=== PATIENT | male | born 1960 | race Caucasian/White ===

== ENCOUNTER → 2016-11-17 | Outpatient (CLI) | payer SELFPAY | LOC: M HL 10:22 | PROVIDERS: ATTEND Nurse Practitioner Family | DX: E11.65 Type 2 diabetes mellitus with hyperglycemia (principal) ==

== ENCOUNTER → 2016-11-29 | Outpatient (REF) | payer SELFPAY ==
[2016-11-29 12:21] LABS: ALBUMIN 3.8 GM/DL (3.2-5.2); ALBUMIN/GLOBULIN RATIO 1.31 (1.00-1.93); ALKALINE PHOSPHATASE 85 U/L (45-117); ALT/SGPT 18 U/L (12-78); ANION GAP 12 MEQ/L (8-16); AST/SGOT 17 U/L (15-37); BILIRUBIN,TOTAL 0.6 MG/DL (0.2-1.0); BLOOD UREA NITROGEN 14 MG/DL (7-18); CARBON DIOXIDE LEVEL 26 MEQ/L (21-32); CHLORIDE LEVEL 102 MEQ/L (98-107); CHOLESTEROL LEVEL 90 MG/DL (<200); CREATININE FOR GFR 0.65 MG/DL (0.70-1.30); GLOMERULAR FILTRATION RATE > 60.0 (>56); GLUCOSE, FASTING 110 MG/DL (70-105); POTASSIUM SERUM 4.7 MEQ/L (3.5-5.1); SODIUM LEVEL 140 MEQ/L (136-145); TOTAL PROTEIN 6.7 GM/DL (6.4-8.2); TRIGLYCERIDES LEVEL 54 MG/DL (<150)
== END ==
LOC: M SFHCPLAZ 11:31
PROVIDERS: ATTEND Nurse Practitioner Family
DX: E11.65 Type 2 diabetes mellitus with hyperglycemia (principal)

== ENCOUNTER → 2017-05-31 | Outpatient (REF) | payer OTHER, SELFPAY ==
[2017-05-31 12:40] LABS: MEAN CORPUSCULAR HEMOGLOBIN 32.2 pg (27.0-33.0); MEAN CORPUSCULAR HGB CONC 34.1 g/dl (32.0-36.5); MEAN CORPUSCULAR VOLUME 94.4 fl (80.0-96.0); RED CELL DISTRIBUTION WIDTH 12.7 % (11.5-14.5); WHITE BLOOD COUNT 10.5 K/mm3 (4.0-10.0)
[2017-05-31 12:54] LABS: VITAMIN B12 LEVEL 556 PG/ML
[2017-05-31 12:55] LABS: ALBUMIN 3.8 GM/DL (3.2-5.2); ALBUMIN/GLOBULIN RATIO 1.19 (1.00-1.93); ALKALINE PHOSPHATASE 98 U/L (45-117); ALT/SGPT 33 U/L (12-78); ANION GAP 11 MEQ/L (8-16); AST/SGOT 15 U/L (15-37); BILIRUBIN,TOTAL 0.5 MG/DL (0.2-1.0); BLOOD UREA NITROGEN 15 MG/DL (7-18); CALCIUM LEVEL 9.2 MG/DL (8.5-10.1); CARBON DIOXIDE LEVEL 26 MEQ/L (21-32); CHLORIDE LEVEL 99 MEQ/L (98-107); CHOLESTEROL LEVEL 102 MG/DL (<200); CREATININE FOR GFR 0.73 MG/DL (0.70-1.30); FOLATE 14.1 NG/ML; GLOMERULAR FILTRATION RATE > 60.0 (>56); GLUCOSE, FASTING 182 MG/DL (70-105); POTASSIUM SERUM 4.4 MEQ/L (3.5-5.1); SODIUM LEVEL 136 MEQ/L (136-145); TRIGLYCERIDES LEVEL 72 MG/DL (<150)
== END ==
LOC: M SFHCPLAZ 08:26
PROVIDERS: ATTEND Nurse Practitioner Family
DX: E53.8 Deficiency of other specified B group vitamins (principal); E11.65 Type 2 diabetes mellitus with hyperglycemia

== ENCOUNTER → 2017-07-13 | Outpatient (REF) | payer SELFPAY ==
[2017-07-13 10:32] LABS: MEAN CORPUSCULAR HEMOGLOBIN 32.3 pg (27.0-33.0); MEAN CORPUSCULAR HGB CONC 34.7 g/dl (32.0-36.5); MEAN CORPUSCULAR VOLUME 92.9 fl (80.0-96.0); RED CELL DISTRIBUTION WIDTH 12.2 % (11.5-14.5); RETIC HEMOGLOBIN CONTENT CHr 33.8 PG (24-36); WHITE BLOOD COUNT 7.9 K/mm3 (4.0-10.0)
[2017-07-13 11:00] LABS: PERCENT SATURATION 37.9 % (19.7-50.0)
== END ==
LOC: M SFHCPLAZ 10:08
PROVIDERS: ATTEND Nurse Practitioner Family
DX: D64.9 Anemia, unspecified (principal); R80.9 Proteinuria, unspecified

== ENCOUNTER → 2017-09-20 | Outpatient (CLI) | payer SELFPAY ==
[2017-09-20 10:35] LABS: ALBUMIN 3.7 GM/DL (3.2-5.2); ALBUMIN/GLOBULIN RATIO 1.28 (1.00-1.93); ALKALINE PHOSPHATASE 118 U/L (45-117); ALT/SGPT 22 U/L (12-78); ANION GAP 8 MEQ/L (8-16); AST/SGOT 8 U/L (7-37); BILIRUBIN,TOTAL 0.4 MG/DL (0.2-1.0); BLOOD UREA NITROGEN 11 MG/DL (7-18); CALCIUM LEVEL 8.6 MG/DL (8.5-10.1); CARBON DIOXIDE LEVEL 30 MEQ/L (21-32); CHLORIDE LEVEL 95 MEQ/L (98-107); CREATININE FOR GFR 0.73 MG/DL (0.70-1.30); GLOMERULAR FILTRATION RATE > 60.0 (>56); GLUCOSE, FASTING 355 MG/DL (70-105); POTASSIUM SERUM 4.1 MEQ/L (3.5-5.1); SODIUM LEVEL 133 MEQ/L (136-145); TOTAL PROTEIN 6.6 GM/DL (6.4-8.2)
== END ==
LOC: M LABDRAW1 07:35
PROVIDERS: ATTEND Nurse Practitioner Family
DX: E11.65 Type 2 diabetes mellitus with hyperglycemia (principal); R80.9 Proteinuria, unspecified

== ENCOUNTER → 2017-12-21 | Outpatient (REF) | payer SELFPAY ==
[2017-12-21 12:15] LABS: ALBUMIN 3.9 GM/DL (3.2-5.2); ALBUMIN/GLOBULIN RATIO 1.26 (1.00-1.93); ALKALINE PHOSPHATASE 108 U/L (45-117); ALT/SGPT 24 U/L (12-78); ANION GAP 8 MEQ/L (8-16); AST/SGOT 13 U/L (7-37); BILIRUBIN,TOTAL 0.4 MG/DL (0.2-1.0); BLOOD UREA NITROGEN 18 MG/DL (7-18); CALCIUM LEVEL 8.8 MG/DL (8.5-10.1); CARBON DIOXIDE LEVEL 30 MEQ/L (21-32); CHLORIDE LEVEL 97 MEQ/L (98-107); CREATININE FOR GFR 0.81 MG/DL (0.70-1.30); GLOMERULAR FILTRATION RATE > 60.0 (>56); GLUCOSE, FASTING 237 MG/DL (70-100); POTASSIUM SERUM 4.5 MEQ/L (3.5-5.1); SODIUM LEVEL 135 MEQ/L (136-145)
[2017-12-21 13:54] LABS: CREATININE, URINE 89.9 MG/DL; MALB URINE SIEMENS 25.8 MG/L; MAU/CREAT RATIO 28.6 MCG/MG (0.0-30.0)
[2017-12-21 14:56] LABS: ESTIMATED AVERAGE GLUCOSE 280 MG/DL (60-110); HEMOGLOBIN A1c 11.4 %
== END ==
LOC: M LABDRAW1 11:26
DX: E11.65 Type 2 diabetes mellitus with hyperglycemia (principal); E11.29 Type 2 diabetes mellitus with other diabetic kidney complication

== ENCOUNTER → 2018-02-15 | Outpatient (REF) | payer SELFPAY ==
[2018-02-15 12:41] LABS: ALBUMIN 3.8 GM/DL (3.2-5.2); ALBUMIN/GLOBULIN RATIO 1.27 (1.00-1.93); ALKALINE PHOSPHATASE 86 U/L (45-117); ALT/SGPT 23 U/L (12-78); ANION GAP 8 MEQ/L (8-16); AST/SGOT 16 U/L (7-37); BILIRUBIN,TOTAL 0.4 MG/DL (0.2-1.0); BLOOD UREA NITROGEN 14 MG/DL (7-18); CARBON DIOXIDE LEVEL 28 MEQ/L (21-32); CHLORIDE LEVEL 106 MEQ/L (98-107); CREATININE FOR GFR 0.65 MG/DL (0.70-1.30); GLOMERULAR FILTRATION RATE > 60.0 (>56); GLUCOSE, FASTING 55 MG/DL (70-100); POTASSIUM SERUM 3.9 MEQ/L (3.5-5.1); SODIUM LEVEL 142 MEQ/L (136-145); TOTAL PROTEIN 6.8 GM/DL (6.4-8.2)
[2018-02-15 13:10] LABS: MALB URINE SIEMENS 22.7 MG/L; MAU/CREAT RATIO 22.9 MCG/MG (0.0-30.0)
[2018-02-15 15:12] LABS: ESTIMATED AVERAGE GLUCOSE 220 MG/DL (60-110); HEMOGLOBIN A1c 9.3 %
[2018-02-17 08:10] LABS: FOLATE > 24.0 NG/ML; VITAMIN B12 LEVEL 215 PG/ML
== END ==
LOC: M LABDRAW1 11:20
DX: E11.65 Type 2 diabetes mellitus with hyperglycemia (principal); R80.9 Proteinuria, unspecified; E53.8 Deficiency of other specified B group vitamins
CPT/HCPCS: 82746

== ENCOUNTER → 2018-03-01 | Outpatient (CLI) | payer SELFPAY ==
[2018-03-01 09:11] LABS: BASO # 0.1 10^3/uL (0.0-0.2); BASO % 0.4 % (0.0-1.0); EOS # 0.3 10^3/uL (0.0-0.50); EOS % 2.3 % (0.0-3.0); HEMATOCRIT 37.9 % (42.0-52.0); IMMATURE GRANULOCYTE % 0.6 % (0-3.0); LYMPH # 1.9 10^3/uL (1.5-4.5); LYMPH % 13.9 % (24.0-44.0); MEAN CORPUSCULAR HEMOGLOBIN 31.3 pg (27.0-33.0); MEAN CORPUSCULAR HGB CONC 34.3 g/dl (32.0-36.5); MEAN CORPUSCULAR VOLUME 91.3 fl (80.0-96.0); MONO # 0.6 10^3/uL (0.0-0.8); MONO % 4.3 % (0.0-5.0); NEUTROPHILS # 10.8 10^3/uL (1.8-7.7); NEUTROPHILS % 78.5 % (36.0-66.0); PLATELET COUNT, AUTOMATED 313 10^3/uL (150-450); RED BLOOD COUNT 4.15 10^6/uL (4.30-6.10); RED CELL DISTRIBUTION WIDTH 11.9 % (11.5-14.5); WHITE BLOOD COUNT 13.7 10^3/uL (4.0-10.0)
[2018-03-01 09:36] LABS: ANION GAP 8 MEQ/L (8-16); BLOOD UREA NITROGEN 15 MG/DL (7-18); CARBON DIOXIDE LEVEL 29 MEQ/L (21-32); CHLORIDE LEVEL 101 MEQ/L (98-107); CREATININE FOR GFR 0.78 MG/DL (0.70-1.30); GLOMERULAR FILTRATION RATE > 60.0 (>56); GLUCOSE, FASTING 155 MG/DL (70-100); POTASSIUM SERUM 4.6 MEQ/L (3.5-5.1); SODIUM LEVEL 138 MEQ/L (136-145)
== END ==
LOC: M RAD 08:35
DX: J34.89 Other specified disorders of nose and nasal sinuses (principal); I65.23 Occlusion and stenosis of bilateral carotid arteries; R04.2 Hemoptysis; E11.8 Type 2 diabetes mellitus with unspecified complications; G44.52 New daily persistent headache (NDPH); Z91.81 History of falling
CPT/HCPCS: 71046

== ENCOUNTER → 2018-03-01 | Outpatient (REF) | payer OTHER | LOC: M SFHCPLAZ 07:53 | DX: R04.2 Hemoptysis (principal); E11.8 Type 2 diabetes mellitus with unspecified complications ==

== ENCOUNTER → 2018-05-23 | Outpatient (REF) | payer SELFPAY ==
[2018-05-23 11:35] LABS: HEMATOCRIT 40.6 % (42.0-52.0); HEMOGLOBIN 14.4 g/dl (13.5-17.5); MEAN CORPUSCULAR HEMOGLOBIN 31.6 pg (27.0-33.0); MEAN CORPUSCULAR HGB CONC 35.5 g/dl (32.0-36.5); PLATELET COUNT, AUTOMATED 178 10^3/uL (150-450); RED BLOOD COUNT 4.56 10^6/uL (4.30-6.10); RED CELL DISTRIBUTION WIDTH 12.3 % (11.5-14.5); WHITE BLOOD COUNT 7.4 10^3/uL (4.0-10.0)
[2018-05-23 12:09] LABS: ALBUMIN 3.9 GM/DL (3.2-5.2); ALBUMIN/GLOBULIN RATIO 1.18 (1.00-1.93); ALKALINE PHOSPHATASE 92 U/L (45-117); ALT/SGPT 27 U/L (12-78); ANION GAP 8 MEQ/L (8-16); AST/SGOT 14 U/L (7-37); BILIRUBIN,TOTAL 0.6 MG/DL (0.2-1.0); BLOOD UREA NITROGEN 12 MG/DL (7-18); CALCIUM LEVEL 8.7 MG/DL (8.5-10.1); CARBON DIOXIDE LEVEL 28 MEQ/L (21-32); CHLORIDE LEVEL 100 MEQ/L (98-107); CHOLESTEROL LEVEL 104 MG/DL (<200); CHOLESTEROL RISK RATIO 2.666 (<5); CREATININE FOR GFR 0.75 MG/DL (0.70-1.30); GLOMERULAR FILTRATION RATE > 60.0 (>56); GLUCOSE, FASTING 276 MG/DL (70-100); HDL CHOLESTEROL 39 MG/DL (>40); LDL CHOLESTEROL 51.8 MG/DL (<100); NON-HDL-C 65 MG/DL; POTASSIUM SERUM 4.1 MEQ/L (3.5-5.1); SODIUM LEVEL 136 MEQ/L (136-145); TOTAL PROTEIN 7.2 GM/DL (6.4-8.2); TRIGLYCERIDES LEVEL 66 MG/DL (<150)
[2018-05-23 12:10] LABS: FOLATE 19.4 NG/ML (>5.4); VITAMIN B12 LEVEL 621 PG/ML (247-911)
[2018-05-23 12:42] LABS: MALB URINE SIEMENS 13.2 MG/L; MAU/CREAT RATIO 9.4 MCG/MG (0.0-30.0)
[2018-05-23 13:30] LABS: ESTIMATED AVERAGE GLUCOSE 223 MG/DL (60-110); HEMOGLOBIN A1c 9.4 %
[2018-05-23 14:06] LABS: FREE T4 1.31 NG/DL (0.76-1.46)
== END ==
LOC: M LABDRAW1 11:15
DX: E11.65 Type 2 diabetes mellitus with hyperglycemia (principal); E53.8 Deficiency of other specified B group vitamins

== ENCOUNTER → 2018-07-30 | Outpatient (REF) | payer SELFPAY | LOC: M SFHCPLAZ 09:32 | DX: R19.7 Diarrhea, unspecified (principal) ==

== ENCOUNTER → 2018-08-16 | Outpatient (REF) | payer SELFPAY ==
[2018-08-16 11:15] LABS: ALBUMIN 4.3 GM/DL (3.2-5.2); ALBUMIN/GLOBULIN RATIO 1.54 (1.00-1.93); ALKALINE PHOSPHATASE 98 U/L (45-117); ALT/SGPT 23 U/L (12-78); ANION GAP 8 MEQ/L (8-16); AST/SGOT 15 U/L (7-37); BILIRUBIN,TOTAL 0.4 MG/DL (0.2-1.0); BLOOD UREA NITROGEN 15 MG/DL (7-18); CALCIUM LEVEL 8.9 MG/DL (8.5-10.1); CARBON DIOXIDE LEVEL 29 MEQ/L (21-32); CHLORIDE LEVEL 100 MEQ/L (98-107); CREATININE FOR GFR 0.75 MG/DL (0.70-1.30); FREE T4 1.27 NG/DL (0.76-1.46); GLOMERULAR FILTRATION RATE > 60.0 (>56); GLUCOSE, FASTING 214 MG/DL (70-100); POTASSIUM SERUM 4.4 MEQ/L (3.5-5.1); SODIUM LEVEL 137 MEQ/L (136-145); TOTAL PROTEIN 7.1 GM/DL (6.4-8.2)
[2018-08-16 11:55] LABS: ESTIMATED AVERAGE GLUCOSE 240 MG/DL (60-110)
[2018-08-16 12:01] LABS: FOLATE 22.2 NG/ML
== END ==
LOC: M LABDRAW1 09:48
DX: E11.65 Type 2 diabetes mellitus with hyperglycemia (principal); R19.7 Diarrhea, unspecified; E53.8 Deficiency of other specified B group vitamins
CPT/HCPCS: 82746

== ENCOUNTER → 2018-11-06 | Outpatient (REF) | payer SELFPAY ==
[~2018-11-06] MED LIST: ASPI81CH32 PO; b12; glyburide; metformin; simvastatin
[2018-11-06 11:55] LABS: HEMOGLOBIN A1c 10.3 %
[2018-11-06 12:10] LABS: ALBUMIN 3.9 GM/DL (3.2-5.2); ALT/SGPT 28 U/L (12-78); BILIRUBIN,TOTAL 0.3 MG/DL (0.2-1.0); BLOOD UREA NITROGEN 17 MG/DL (7-18); CALCIUM LEVEL 8.9 MG/DL (8.5-10.1); CARBON DIOXIDE LEVEL 27 MEQ/L (21-32); CHLORIDE LEVEL 98 MEQ/L (98-107); CREATININE FOR GFR 0.83 MG/DL (0.70-1.30); GLOMERULAR FILTRATION RATE > 60.0 (>56); GLUCOSE, FASTING 190 MG/DL (70-100); POTASSIUM SERUM 4.4 MEQ/L (3.5-5.1); SODIUM LEVEL 135 MEQ/L (136-145); TOTAL PROTEIN 6.8 GM/DL (6.4-8.2)
== END ==
LOC: M LABDRAW1 09:23
PROVIDERS: ATTEND Nurse Practitioner Family
DX: E11.65 Type 2 diabetes mellitus with hyperglycemia (principal)

== ENCOUNTER 2018-11-12 21:19 | Emergency (ER) | payer SELFPAY ==
[~2018-11-12] VITALS: Ht 172.7 cm; Wt 79.5 kg
[2018-11-12] MEDS ORDERED: glyburide (21:56)
[2018-11-12] MEDS ORDERED: simvastatin (21:56)
[2018-11-12] MEDS ORDERED: metformin (21:56)
[2018-11-12] MEDS ORDERED: ASPI81CH32 PO (21:56)
[2018-11-12] MEDS ORDERED: b12 (21:56)
[2018-11-12] MEDS ORDERED: CEPHALEXIN 500 MG CAP PO ONE (22:45)
[2018-11-12] MEDS ORDERED: ADACEL/BOOSTRIX VACCINE (DIPHTH/PERTUSS/ACELL/TETANUS)0.5ML SYR (90715) IM ONE (22:45)
[2018-11-12 23:22] VITALS: BP 99/63
== END 2018-11-12 23:26 | disposition home or self-care (01) ==
LOC: M ED 21:19
DX: S61.215A Laceration without foreign body of left ring finger without damage to nail, initial encounter (principal); W26.8XXA Contact with other sharp object(s), not elsewhere classified, initial encounter; Y92.018 Other place in single-family (private) house as the place of occurrence of the external cause; E03.9 Hypothyroidism, unspecified; Z79.899 Other long term (current) drug therapy; Z79.82 Long term (current) use of aspirin

== ENCOUNTER → 2018-11-23 | Outpatient (REF) | payer SELFPAY ==
[2018-11-23 15:31] LABS: CREATININE, URINE 74.1 MG/DL; MALB URINE SIEMENS 6.1 MG/L; MAU/CREAT RATIO 8.2 MCG/MG (0.0-30.0)
== END ==
LOC: M LABDRAW1 12:33
PROVIDERS: ATTEND Nurse Practitioner Family
DX: E11.65 Type 2 diabetes mellitus with hyperglycemia (principal)

== ENCOUNTER → 2018-12-05 | Outpatient (REF) | payer OTHER ==
[2018-12-05 11:09] LABS: HEMATOCRIT 41.4 % (42.0-52.0); HEMOGLOBIN 14.2 g/dl (13.5-17.5); MEAN CORPUSCULAR HEMOGLOBIN 31.9 pg (27.0-33.0); MEAN CORPUSCULAR HGB CONC 34.3 g/dl (32.0-36.5); PLATELET COUNT, AUTOMATED 229 10^3/uL (150-450); RED BLOOD COUNT 4.45 10^6/uL (4.30-6.10); WHITE BLOOD COUNT 7.3 10^3/uL (4.0-10.0)
[2018-12-05 11:18] LABS: BLOOD UREA NITROGEN 13 MG/DL (7-18); CALCIUM LEVEL 8.8 MG/DL (8.5-10.1); CARBON DIOXIDE LEVEL 28 MEQ/L (21-32); CHLORIDE LEVEL 100 MEQ/L (98-107); CREATININE FOR GFR 0.72 MG/DL (0.70-1.30); GLOMERULAR FILTRATION RATE > 60.0 (>56); GLUCOSE, FASTING 167 MG/DL (70-100); POTASSIUM SERUM 4.2 MEQ/L (3.5-5.1); SODIUM LEVEL 136 MEQ/L (136-145)
[2018-12-05 11:57] LABS: FOLATE 13.2 NG/ML
[2018-12-07 11:28] LABS: VITAMIN B12 LEVEL 473 PG/ML (232-1245)
== END ==
LOC: M SFHCPLAZ 08:43
PROVIDERS: ATTEND Nurse Practitioner Family
DX: E53.8 Deficiency of other specified B group vitamins (principal); R42 Dizziness and giddiness

== ENCOUNTER → 2019-01-08 | Outpatient (REF) | payer SELFPAY ==
[2019-01-08 13:44] LABS: ALBUMIN 3.4 GM/DL (3.2-5.2); ALT/SGPT 32 U/L (12-78); BILIRUBIN,TOTAL 0.3 MG/DL (0.2-1.0); BLOOD UREA NITROGEN 10 MG/DL (7-18); CALCIUM LEVEL 8.3 MG/DL (8.5-10.1); CARBON DIOXIDE LEVEL 28 MEQ/L (21-32); CHLORIDE LEVEL 103 MEQ/L (98-107); CREATININE FOR GFR 0.68 MG/DL (0.70-1.30); GLOMERULAR FILTRATION RATE > 60.0 (>56); GLUCOSE, FASTING 149 MG/DL (70-100); POTASSIUM SERUM 4.1 MEQ/L (3.5-5.1); SODIUM LEVEL 138 MEQ/L (136-145); TOTAL PROTEIN 6.3 GM/DL (6.4-8.2)
[2019-01-08 15:46] LABS: HEMOGLOBIN A1c 9.2 %
== END ==
LOC: M LABDRAW1 12:27
PROVIDERS: ATTEND Nurse Practitioner Family
DX: E11.65 Type 2 diabetes mellitus with hyperglycemia (principal)

== ENCOUNTER → 2019-04-10 | Outpatient (REF) | payer SELFPAY ==
[~2019-04-10] MED LIST changes: -ASPI81CH32 PO; +ASPI81CH33 PO
[2019-04-10 14:03] LABS: ALBUMIN 3.7 GM/DL (3.2-5.2); ALT/SGPT 22 U/L (12-78); BILIRUBIN,TOTAL 0.5 MG/DL (0.2-1.0); BLOOD UREA NITROGEN 7 MG/DL (7-18); CALCIUM LEVEL 8.6 MG/DL (8.5-10.1); CARBON DIOXIDE LEVEL 26 MEQ/L (21-32); CHLORIDE LEVEL 104 MEQ/L (98-107); CHOLESTEROL LEVEL 138 MG/DL (<200); CREATININE FOR GFR 0.71 MG/DL (0.70-1.30); FOLATE 12.9 NG/ML; GLOMERULAR FILTRATION RATE > 60.0 (>56); GLUCOSE, FASTING 95 MG/DL (70-100); HDL CHOLESTEROL 46 MG/DL (>40); LDL CHOLESTEROL 80 MG/DL (<100); NON-HDL-C 92 MG/DL; POTASSIUM SERUM 3.9 MEQ/L (3.5-5.1); SODIUM LEVEL 140 MEQ/L (136-145); TOTAL PROTEIN 7.1 GM/DL (6.4-8.2); TRIGLYCERIDES LEVEL 59 MG/DL (<150); VITAMIN B12 LEVEL 491 PG/ML
[2019-04-10 14:32] LABS: CREATININE, URINE 43.7 MG/DL; MALB URINE SIEMENS < 5.0 MG/L; MAU/CREAT RATIO 11.4 MCG/MG (0.0-30.0)
== END ==
LOC: M LABDRAW1 12:39
PROVIDERS: ATTEND Nurse Practitioner Family
DX: E11.65 Type 2 diabetes mellitus with hyperglycemia (principal); E78.49 Other hyperlipidemia; E53.8 Deficiency of other specified B group vitamins

== ENCOUNTER 2019-05-23 08:13 | Emergency (ER) | payer SELFPAY ==
[~2019-05-23] VITALS: Ht 170.2 cm; Wt 84.5 kg
[2019-05-23 09:24] LABS: BASO # 0.1 10^3/uL (0.0-0.2); BASO % 0.8 % (0.0-1.0); EOS # 0.3 10^3/uL (0.0-0.50); EOS % 3.8 % (0.0-3.0); HEMATOCRIT 42.4 % (42.0-52.0); HEMOGLOBIN 14.4 g/dl (13.5-17.5); LYMPH # 1.7 10^3/uL (1.5-4.5); LYMPH % 23.4 % (24.0-44.0); MEAN CORPUSCULAR VOLUME 94.2 fl (80.0-96.0); MONO # 0.3 10^3/uL (0.0-0.8); MONO % 4.1 % (0.0-5.0); NEUTROPHILS % 67.5 % (36.0-66.0); PLATELET COUNT, AUTOMATED 204 10^3/uL (150-450); WHITE BLOOD COUNT 7.3 10^3/uL (4.0-10.0)
--- NOTE | 2019-05-23 09:24 | REP ---
KUB ABDOMEN AND PELVIS: Two KUB films of the abdomen and pelvis performed. There is no evidence of significantly dilated small bowel loops radiographically. Air and fecal material is scattered throughout the colon. Metallic clips are seen in the right upper quadrant and pelvis. There are degenerative changes of the spine. IMPRESSION: No radiographic evidence of small bowel obstruction. Electronically Signed by Jude Madrigal MD 05/23/2019 10:11 A
[2019-05-23 09:51] LABS: BLOOD UREA NITROGEN 11 MG/DL (7-18); CALCIUM LEVEL 8.8 MG/DL (8.8-10.2); CARBON DIOXIDE LEVEL 31 MEQ/L (21-32); CHLORIDE LEVEL 102 MEQ/L (98-107); CREATININE FOR GFR 0.88 MG/DL (0.70-1.30); GLOMERULAR FILTRATION RATE > 60.0 (>49); GLUCOSE, FASTING 257 MG/DL (70-100); POTASSIUM SERUM 5.3 MEQ/L (3.5-5.1); SODIUM LEVEL 138 MEQ/L (136-145)
[2019-05-23] MEDS ORDERED: BACT800T5 PO (12:27)
[2019-05-23 13:16] VITALS: BP 110/66
--- NOTE | 2019-05-23 20:38 | ECGEPIP ---
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
== END 2019-05-23 13:23 | disposition home or self-care (01) ==
LOC: M ED 08:13
DX: L03.115 Cellulitis of right lower limb (principal); L97.919 Non-pressure chronic ulcer of unspecified part of right lower leg with unspecified severity; R11.2 Nausea with vomiting, unspecified; R00.1 Bradycardia, unspecified; E11.9 Type 2 diabetes mellitus without complications; E78.5 Hyperlipidemia, unspecified; E03.9 Hypothyroidism, unspecified; E53.8 Deficiency of other specified B group vitamins; Z79.82 Long term (current) use of aspirin; Z79.4 Long term (current) use of insulin; Z79.899 Other long term (current) drug therapy; Z88.6 Allergy status to analgesic agent

== ENCOUNTER → 2019-05-25 | Outpatient (REF) | payer OTHER, SELFPAY ==
[~2019-05-25] MED LIST changes: +BACT800T5 PO; +NOVOINJ12 SC; +ONDA4TAB6 PO
[2019-05-25 12:05] LABS: BLOOD UREA NITROGEN 13 MG/DL (7-18); CARBON DIOXIDE LEVEL 29 MEQ/L (21-32); CHLORIDE LEVEL 101 MEQ/L (98-107); CREATININE FOR GFR 1.02 MG/DL (0.70-1.30); GLOMERULAR FILTRATION RATE > 60.0 (>49); GLUCOSE, FASTING 200 MG/DL (70-100); POTASSIUM SERUM 4.3 MEQ/L (3.5-5.1); SODIUM LEVEL 137 MEQ/L (136-145)
== END ==
LOC: M SFHCPLAZ 10:18
PROVIDERS: ATTEND Nurse Practitioner Family
DX: R11.2 Nausea with vomiting, unspecified (principal)

== ENCOUNTER 2019-05-31 11:53 | Emergency (ER) | payer OTHER, SELFPAY ==
[~2019-05-31 11:53] MED LIST changes: -NOVOINJ12 SC; -ONDA4TAB6 PO
[2019-05-31] MEDS ORDERED: NS 1,000 ML IV ONE (12:15)
[2019-05-31] MEDS ORDERED: ONDANSETRON 4MG/2ML VIAL (J2405) IV ONE (12:15)
[2019-05-31] MEDS ORDERED: NOVOINJ12 SC (12:23)
[2019-05-31 12:57] LABS: HEMATOCRIT 38.1 % (42.0-52.0); HEMOGLOBIN 13.2 g/dl (13.5-17.5); MEAN CORPUSCULAR HEMOGLOBIN 31.9 pg (27.0-33.0); MEAN CORPUSCULAR HGB CONC 34.6 g/dl (32.0-36.5); RED BLOOD COUNT 4.14 10^6/uL (4.30-6.10); WHITE BLOOD COUNT 2.5 10^3/uL (4.0-10.0)
[2019-05-31 13:39] LABS: PLATELET COUNT, AUTOMATED 66 10^3/uL (150-450)
[2019-05-31 13:46] LABS: ANISOCYTOSIS 1+; ATYPICAL LYMPH 2 % (0-5); EOSINOPHILS 1 % (0-5); LYMPHOCYTES 30 % (16-52); MONOCYTES 2 % (0-8); NEUTROPHILS 58 % (35-75); PLATELET ESTIMATE DECREASED (NORMAL)
[2019-05-31 14:00] LABS: ALBUMIN 3.1 GM/DL (3.2-5.2); ALT/SGPT 46 U/L (12-78); BILIRUBIN,DIRECT 0.2 MG/DL (0.0-0.2); BILIRUBIN,TOTAL 0.5 MG/DL (0.2-1.0); BLOOD UREA NITROGEN 17 MG/DL (7-18); CALCIUM LEVEL 7.7 MG/DL (8.8-10.2); CARBON DIOXIDE LEVEL 24 MEQ/L (21-32); CHLORIDE LEVEL 98 MEQ/L (98-107); CPK CREATINE PHOSPHOKINASE 2047 U/L (39-308); CREATININE FOR GFR 0.97 MG/DL (0.70-1.30); GLOMERULAR FILTRATION RATE > 60.0 (>49); GLUCOSE, FASTING 214 MG/DL (70-100); LIPASE 50 U/L (73-393); MB/CK RELATIVE INDEX 0.15 (< OR =4); POTASSIUM SERUM 4.4 MEQ/L (3.5-5.1); SODIUM LEVEL 132 MEQ/L (136-145); TOTAL PROTEIN 6.3 GM/DL (6.4-8.2); TROPONIN I 0.03 NG/ML (< 0.10)
[2019-05-31] MEDS ORDERED: METOCLOPRAMIDE INJ 10MG/2ML VIAL (J2765) IV ONE (14:15)
[2019-05-31] MEDS ORDERED: ONDA4TAB6 PO (16:24)
[2019-05-31 16:43] LABS: CK-MB VALUE MASS 2.6 NG/ML (<3.6); MB/CK RELATIVE INDEX 0.15 (< OR =4); TROPONIN I 0.02 NG/ML (< 0.10)
[2019-05-31 17:00] VITALS: BP 111/74
--- NOTE | 2019-06-01 21:49 | ECGEPIP ---
[facility] - ED Test Date: 2019-05-31 Pat Name: SARAH SCHAEFER Department: Room: - Gender: Male Coo: jan : 1960 Requested By: Jan Borjas Order Number: [id number] Reading MD: Jan Adorno Measurements Intervals [place] Rate: 68 P: 30 OK: 157 QRS: 4 QRSD: 81 T: 29 QT: 398 QTc: 424 Interpretive Statements SINUS RHYTHM POSSIBLE INCOMPLETE RIGHT BUNDLE BRANCH BLOCK NSTTW ABNORMALITIES SIMILAR TO 05/23/19 Electronically Signed on 06-01-2019 21:48:53 EDT by Jan Adorno
== END 2019-05-31 17:17 | disposition home or self-care (01) ==
LOC: EDBD 11:53 → M ED 11:53
DX: R11.2 Nausea with vomiting, unspecified (principal); R21 Rash and other nonspecific skin eruption; D69.59 Other secondary thrombocytopenia; T50.995A Adverse effect of other drugs, medicaments and biological substances, initial encounter; X58.XXXA Exposure to other specified factors, initial encounter; Y92.89 Other specified places as the place of occurrence of the external cause; E11.9 Type 2 diabetes mellitus without complications; E78.5 Hyperlipidemia, unspecified; Z79.899 Other long term (current) drug therapy; Z79.82 Long term (current) use of aspirin; Z79.4 Long term (current) use of insulin; Z88.8 Allergy status to other drugs, medicaments and biological substances
CPT/HCPCS: 80048; 80076; 82550; 82553; 83605; 83690; 84484; 85025; 85049; 85055; 93005; 93041; 94760; 96374; 96375; 99285; J2405; J2765

== ENCOUNTER → 2019-06-04 | Outpatient (REF) | payer SELFPAY ==
[~2019-06-04] MED LIST changes: +NOVOINJ12 SC; +ONDA4TAB6 PO
[2019-06-04 17:34] LABS: BASO % 0.4 % (0.0-1.0); EOS # 0.1 10^3/uL (0.0-0.50); EOS % 1.4 % (0.0-3.0); HEMATOCRIT 43.8 % (42.0-52.0); HEMOGLOBIN 14.7 g/dl (13.5-17.5); LYMPH # 2.2 10^3/uL (1.5-4.5); LYMPH % 42.7 % (24.0-44.0); MEAN CORPUSCULAR HEMOGLOBIN 30.8 pg (27.0-33.0); MEAN CORPUSCULAR HGB CONC 33.6 g/dl (32.0-36.5); MEAN CORPUSCULAR VOLUME 91.8 fl (80.0-96.0); MONO # 0.4 10^3/uL (0.0-0.8); MONO % 8.5 % (0.0-5.0); NEUTROPHILS # 2.4 10^3/uL (1.8-7.7); PLATELET COUNT, AUTOMATED 192 10^3/uL (150-450); RED BLOOD COUNT 4.77 10^6/uL (4.30-6.10); WHITE BLOOD COUNT 5.2 10^3/uL (4.0-10.0)
== END ==
LOC: M LAB REF 16:07
PROVIDERS: ATTEND Nurse Practitioner Family
DX: D72.819 Decreased white blood cell count, unspecified (principal); D69.6 Thrombocytopenia, unspecified

== ENCOUNTER → 2019-06-08 | Outpatient (CLI) | payer SELFPAY ==
[~2019-06-08] MED LIST changes: +E-Z-GAS II EFFERVESCENT PACKET (SODIUM BICARB./CITRIC ACID/SIMETHICONE) As Ordered ONE; +E-Z-HD 98% w/w 340GM SUSP BTL As Ordered ONE; +E-Z-PAQUE 96% w/w SUSP 176GM BTL As Ordered ONE
--- NOTE | 2019-06-08 18:12 | REP ---
Upper GI Air Contrast with SBFT The procedure was performed by CORBY Beck, under the the direct supervision of Dr. Stock. The images were reviewed with Dr. Stock. The telemetry rn film shows no organomegaly or pathological masses. The intestinal gas pattern appears normal. Liquid barium and gas producing crystals were given in the erect position as well as liquid barium in the prone position in order to perform a double contrast upper GI examination. The oral and pharyngeal stages of deglutition were unremarkable. Esophageal transport is efficient and there is no esophagitis, stricture, or mucosal ring noted. There is a small hiatal hernia. Gastroesophageal reflux was observed into the distal esophagus. Evaluation of the stomach is limited due to the patient's mobility issues. The stomach salas are normally outlined. The rugal folds are smooth and regular. There is no obstruction. The duodenal salas are normally outlined. The mucosal folds are smooth and regular. There is no duodenitis, peptic ulcer disease, or neoplasm noted. There appears to be an under-rotation of the jejunum in the right upper quadrant. The barium column was followed through the small bowel to the level of the terminal ileum. Small bowel transit time was approximately 140 minutes. During fluoroscopy gentle palpation shows all loops are freely mobile and pliable. There are no fixed or angulated loops. The small bowel mucosal pattern is normal in course and caliber. There is no transition to set suggest a partial small-bowel obstruction. Spot filming of the terminal ileum is limited due to small bowel crowding. Impression: 1. Small hiatal hernia. 2. Gastroesophageal reflux was observed into the distal esophagus. 3. 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 No dilatation. 4. Limited evaluation of the terminal ileum due to small bowel crowding. 2.1 minutes of fluoroscopy time was utilized for this procedure. Some fluoroscopic images are performed with last image hold technology. These images require no additional radiation. Reviewed by CORBY Washington 06/08/2019 02:12 P Electronically Signed by Alexis Stock MD 06/08/2019 06:04 P
== END ==
LOC: M RAD 08:43
PROVIDERS: ATTEND Nurse Practitioner Family
DX: R11.2 Nausea with vomiting, unspecified (principal); K21.9 Gastro-esophageal reflux disease without esophagitis; K44.9 Diaphragmatic hernia without obstruction or gangrene

== ENCOUNTER → 2019-07-09 | Outpatient (REF) | payer SELFPAY ==
[~2019-07-09] MED LIST changes: -E-Z-GAS II EFFERVESCENT PACKET (SODIUM BICARB./CITRIC ACID/SIMETHICONE) As Ordered ONE; -E-Z-HD 98% w/w 340GM SUSP BTL As Ordered ONE; -E-Z-PAQUE 96% w/w SUSP 176GM BTL As Ordered ONE
[2019-07-09 13:56] LABS: ALBUMIN 3.7 GM/DL (3.2-5.2); ALT/SGPT 15 U/L (12-78); BILIRUBIN,TOTAL 0.3 MG/DL (0.2-1.0); BLOOD UREA NITROGEN 12 MG/DL (7-18); CARBON DIOXIDE LEVEL 28 MEQ/L (21-32); CHLORIDE LEVEL 102 MEQ/L (98-107); CHOLESTEROL LEVEL 133 MG/DL (<200); CHOLESTEROL RISK RATIO 2.891 (<5); CREATININE FOR GFR 0.71 MG/DL (0.70-1.30); GLOMERULAR FILTRATION RATE > 60.0 (>49); GLUCOSE, FASTING 125 MG/DL (70-100); HDL CHOLESTEROL 46 MG/DL (>40); LDL CHOLESTEROL 73 MG/DL (<100); MAGNESIUM LEVEL 1.5 MG/DL (1.8-2.4); NON-HDL-C 87 MG/DL; POTASSIUM SERUM 4.3 MEQ/L (3.5-5.1); SODIUM LEVEL 138 MEQ/L (136-145); TOTAL PROTEIN 6.6 GM/DL (6.4-8.2); TRIGLYCERIDES LEVEL 69 MG/DL (<150)
[2019-07-09 14:00] LABS: HEMOGLOBIN A1c 8.3 %
[2019-07-09 14:07] LABS: HEMATOCRIT 40.4 % (42.0-52.0); HEMOGLOBIN 13.3 g/dl (13.5-17.5); MEAN CORPUSCULAR HEMOGLOBIN 31.4 pg (27.0-33.0); MEAN CORPUSCULAR HGB CONC 32.9 g/dl (32.0-36.5); MEAN CORPUSCULAR VOLUME 95.3 fl (80.0-96.0); PLATELET COUNT, AUTOMATED 228 10^3/uL (150-450); RED BLOOD COUNT 4.24 10^6/uL (4.30-6.10); WHITE BLOOD COUNT 8.7 10^3/uL (4.0-10.0)
[2019-07-09 14:37] LABS: FOLATE 8.2 NG/ML
[2019-07-09 15:11] LABS: VITAMIN B12 LEVEL 594 PG/ML
== END ==
LOC: M LABDRAW1 11:44
PROVIDERS: ATTEND Nurse Practitioner Family
DX: R61 Generalized hyperhidrosis (principal)

== ENCOUNTER → 2019-11-07 | Outpatient (REF) | payer SELFPAY ==
[2019-11-07 13:10] LABS: ALT/SGPT 24 U/L (12-78); BILIRUBIN,TOTAL 0.5 MG/DL (0.2-1.0); BLOOD UREA NITROGEN 12 MG/DL (7-18); CALCIUM LEVEL 9.1 MG/DL (8.8-10.2); CARBON DIOXIDE LEVEL 29 MEQ/L (21-32); CHLORIDE LEVEL 99 MEQ/L (98-107); CHOLESTEROL LEVEL 138 MG/DL (<200); CHOLESTEROL RISK RATIO 3.365 (<5); CREATININE FOR GFR 0.83 MG/DL (0.70-1.30); FOLATE > 24.0 NG/ML; GLOMERULAR FILTRATION RATE > 60.0 (>49); GLUCOSE, FASTING 104 MG/DL (70-100); HDL CHOLESTEROL 41 MG/DL (>40); LDL CHOLESTEROL 80 MG/DL (<100); NON-HDL-C 97 MG/DL; POTASSIUM SERUM 4.8 MEQ/L (3.5-5.1); SODIUM LEVEL 137 MEQ/L (136-145); TOTAL PROTEIN 6.9 GM/DL (6.4-8.2); TRIGLYCERIDES LEVEL 83 MG/DL (<150); VITAMIN B12 LEVEL 903 PG/ML
[2019-11-07 13:29] LABS: CREATININE, URINE 67.5 MG/DL; MALB URINE SIEMENS < 5.0 MG/L; MAU/CREAT RATIO 7.4 MCG/MG (0.0-30.0)
[2019-11-07 13:36] LABS: HEMOGLOBIN A1c 9.2 %
== END ==
LOC: M LABDRAW1 09:20
PROVIDERS: ATTEND Nurse Practitioner Family
DX: E11.8 Type 2 diabetes mellitus with unspecified complications (principal); E53.8 Deficiency of other specified B group vitamins; E78.2 Mixed hyperlipidemia

== ENCOUNTER → 2020-02-07 | Outpatient (REF) | payer SELFPAY ==
[2020-02-07 10:18] LABS: ALBUMIN 3.9 GM/DL (3.2-5.2); ALT/SGPT 23 U/L (12-78); BILIRUBIN,TOTAL 0.3 MG/DL (0.2-1.0); BLOOD UREA NITROGEN 10 MG/DL (7-18); CALCIUM LEVEL 9.2 MG/DL (8.8-10.2); CARBON DIOXIDE LEVEL 32 MEQ/L (21-32); CHLORIDE LEVEL 102 MEQ/L (98-107); CHOLESTEROL LEVEL 129 MG/DL (<200); CHOLESTEROL RISK RATIO 3.225 (<5); CREATININE FOR GFR 0.81 MG/DL (0.70-1.30); GLOMERULAR FILTRATION RATE > 60.0 (>49); GLUCOSE, FASTING 64 MG/DL (70-100); HDL CHOLESTEROL 40 MG/DL (>40); LDL CHOLESTEROL 71 MG/DL (<100); NON-HDL-C 89 MG/DL; POTASSIUM SERUM 4.2 MEQ/L (3.5-5.1); SODIUM LEVEL 140 MEQ/L (136-145); TOTAL PROTEIN 7.1 GM/DL (6.4-8.2); TRIGLYCERIDES LEVEL 88 MG/DL (<150)
[2020-02-07 10:24] LABS: HEMOGLOBIN A1c 8.7 %
== END ==
LOC: M LABDRAW1 07:40
PROVIDERS: ATTEND Nurse Practitioner Family
DX: E11.8 Type 2 diabetes mellitus with unspecified complications (principal); E78.2 Mixed hyperlipidemia

== ENCOUNTER → 2020-07-21 | Outpatient (CLI) | payer SELFPAY ==
[2020-07-21 13:51] LABS: HEMOGLOBIN A1c 9.8 %
== END ==
LOC: M PLALAB 08:59
PROVIDERS: ATTEND Family Medicine
DX: E11.65 Type 2 diabetes mellitus with hyperglycemia (principal); D51.0 Vitamin B12 deficiency anemia due to intrinsic factor deficiency

== ENCOUNTER → 2020-08-27 | Outpatient (CLI) | payer SELFPAY ==
--- NOTE | 2020-08-27 10:38 | REP ---
INDICATION: EDEMA OF RIGHT LOWER EXTREMITY. Right leg swelling. COMPARISON: November 12, 2010.. TECHNIQUE: Duplex venous sonographic scanning right lower extremity. FINDINGS: The deep veins are anechoic and fully compressible from the groin to the popliteal fossa in the right lower extremity. Color flow imaging is homogeneous. Spectral Doppler interrogation demonstrates intact respiratory variation in flow and normal manual augmentation of flow. There is no evidence of deep vein thrombosis. IMPRESSION: Negative right lower extremity duplex venous ultrasound. No evidence of deep vein thrombosis. <Electronically signed by Artem Guzmán > 08/27/20 [id number]
== END ==
LOC: M RAD 09:46
PROVIDERS: ATTEND Nurse Practitioner Family
DX: R60.0 Localized edema (principal)

== ENCOUNTER → 2020-11-13 | Outpatient (REF) | payer OTHER, SELFPAY ==
[2020-11-13 14:41] LABS: ALBUMIN 3.5 GM/DL (3.2-5.2); ALT/SGPT 20 U/L (12-78); BILIRUBIN,TOTAL 0.3 MG/DL (0.2-1.0); BLOOD UREA NITROGEN 10 MG/DL (7-18); CALCIUM LEVEL 9.6 MG/DL (8.8-10.2); CARBON DIOXIDE LEVEL 32 MEQ/L (21-32); CHLORIDE LEVEL 102 MEQ/L (98-107); CREATININE FOR GFR 0.84 MG/DL (0.70-1.30); GLOMERULAR FILTRATION RATE > 60.0 (>49); GLUCOSE, FASTING 111 MG/DL (70-100); POTASSIUM SERUM 5.1 MEQ/L (3.5-5.1); SODIUM LEVEL 137 MEQ/L (136-145); TOTAL PROTEIN 7.2 GM/DL (6.4-8.2)
[2020-11-13 14:45] LABS: FOLATE 18.7 NG/ML; VITAMIN B12 LEVEL 526 PG/ML
[2020-11-13 14:46] LABS: CREATININE, URINE 52.7 MG/DL; MALB URINE SIEMENS < 5.0 MG/L; MAU/CREAT RATIO 9.4 MCG/MG (0.0-30.0)
[2020-11-13 14:51] LABS: HEMOGLOBIN A1c 8.7 %
== END ==
LOC: M PLALAB 09:05
PROVIDERS: ATTEND Nurse Practitioner Family
DX: E11.8 Type 2 diabetes mellitus with unspecified complications (principal)

== ENCOUNTER → 2020-11-20 | Outpatient (REF) | payer SELFPAY | LOC: M SFHCPLAZ 13:13 | PROVIDERS: ATTEND Nurse Practitioner Family | DX: L02.818 Cutaneous abscess of other sites (principal); W55.01XA Bitten by cat, initial encounter; X58.XXXA Exposure to other specified factors, initial encounter; Y92.9 Unspecified place or not applicable ==

== ENCOUNTER 2021-04-01 08:04 | Inpatient (IN) | payer MEDICARE, SELFPAY ==
[~2021-04-01] VITALS: Ht 172.7 cm; Wt 89.7 kg
[2021-04-01] MEDS ORDERED: VANCOMYCIN HCL 1,750 MG in NS 250 ML IV ONE (09:05)
[2021-04-01] MEDS ORDERED: VANCOMYCIN HCL 1,000 MG, VIAL MATE ADAPTER 1 EACH in NS 250 ML IV ONE (09:15)
--- NOTE | 2021-04-01 09:33 | REP ---
INDICATION: swelling COMPARISON: None. TECHNIQUE: AP, lateral, bilateral oblique views right foot. FINDINGS: Soft tissue swelling with small amounts of subcutaneous emphysema, suspected skin ulceration, and small metallic wirelike foreign body noted overlying the 1st metatarsophalangeal joint. Findings are suspicious for abscess with foreign body. Osseous structures and joint spaces demonstrate osteopenia and age-related degenerative changes. No acute fracture. No obvious osseous involvement at the above-mentioned subcutaneous infectious process. IMPRESSION: 1. Findings suspicious for abscess with small central foreign body. <Electronically signed by Stefan Collazo > 04/01/21 [id number]
[2021-04-01] MEDS ORDERED: VANCOMYCIN HCL 750 MG, VIAL MATE ADAPTER 1 EACH in NS 250 ML IV ONE (10:15)
[2021-04-01 10:21] LABS: BASO # 0.1 10^3/uL (0.0-0.2); BASO % 0.5 % (0.0-1.0); EOS # 0.1 10^3/uL (0.0-0.5); EOS % 0.8 % (0.0-3.0); HEMATOCRIT 37.4 % (42.0-52.0); HEMOGLOBIN 12.3 g/dl (13.5-17.5); LYMPH # 1.3 10^3/uL (1.5-5.0); LYMPH % 12.3 % (24.0-44.0); MEAN CORPUSCULAR HEMOGLOBIN 31.1 pg (27.0-33.0); MEAN CORPUSCULAR HGB CONC 32.9 g/dl (32.0-36.5); MEAN CORPUSCULAR VOLUME 94.4 fl (80.0-96.0); MONO # 0.6 10^3/uL (0.0-0.8); MONO % 5.4 % (2.0-8.0); NEUTROPHILS # 8.5 10^3/uL (1.5-8.5); NEUTROPHILS % 79.4 % (36.0-66.0); PLATELET COUNT, AUTOMATED 273 10^3/uL (150-450); RED BLOOD COUNT 3.96 10^6/uL (4.30-6.10); WHITE BLOOD COUNT 10.6 10^3/uL (4.0-10.0)
[2021-04-01 10:40] LABS: ERYTHROCYTE SEDIMENTATION RATE 67 mm/hr (0-20)
[2021-04-01 10:49] LABS: ALBUMIN 2.6 GM/DL (3.2-5.2); ALT/SGPT 11 U/L (12-78); BILIRUBIN,TOTAL 0.6 MG/DL (0.2-1.0); BLOOD UREA NITROGEN 11 MG/DL (7-18); CALCIUM LEVEL 8.8 MG/DL (8.8-10.2); CARBON DIOXIDE LEVEL 29 MEQ/L (21-32); CHLORIDE LEVEL 100 MEQ/L (98-107); GLOMERULAR FILTRATION RATE > 60.0 (>49); GLUCOSE, FASTING 341 MG/DL (70-100); POTASSIUM SERUM 4.3 MEQ/L (3.5-5.1); SODIUM LEVEL 134 MEQ/L (136-145); TOTAL PROTEIN 7.3 GM/DL (6.4-8.2)
[2021-04-01] MEDS ORDERED: GLYB5TAB6 PO (11:08)
[2021-04-01] MEDS ORDERED: NOVOINJ13 SQ (11:08)
[2021-04-01] MEDS ORDERED: ASPI-161 PO (11:08)
[2021-04-01] MEDS ORDERED: METF-838 PO (11:08)
[2021-04-01 12:04] LABS: RSV AMPLIFICATION NEGATIVE (NEGATIVE)
[2021-04-01] MEDS ORDERED: DEXTROSE 50% 50 ML SYRINGE IV PRN (12:25)
[2021-04-01] MEDS ORDERED: GLUCAGON INJ 1MG VIAL SC PRN (12:25)
[2021-04-01] MEDS ORDERED: GLUCOSE 4GM CHEW TABLET PO PRN (12:25)
[2021-04-01] MEDS ORDERED: MAALOX 30 ML SUSP *UDC PO PRN (12:25)
[2021-04-01] MEDS ORDERED: MOM 30ML SUSPENSION UDC PO PRN (12:25)
[2021-04-01] MEDS ORDERED: HumuLIN N INSULIN (NovoLIN N) PER UNIT SQ SCH (14:00)
[2021-04-01 14:15] VITALS: BP 149/84
[2021-04-01] MEDS ORDERED: PIPERACILLIN/TAZOBACTAM SOD 4.5 GM in D5W MINI-BAG PLUS 50 ML IV ONE (15:00)
[2021-04-01] MEDS ORDERED: PIPERACILLIN/TAZOBACTAM SOD 4.5 GM in D5W MINI-BAG PLUS 50 ML IV SCH (15:00)
[2021-04-01 16:03] LABS: HEMOGLOBIN A1c 10.9 %
[2021-04-01] MEDS: HumaLOG INSULIN (NovoLOG) PER UNIT SC SCH ×2 (17:08→20:04)
[2021-04-01] MEDS: CEFTAROLINE FOSAMIL 600 MG in D5W MINI-BAG PLUS 50 ML IV SCH (17:09)
[2021-04-01] MEDS: HumuLIN N INSULIN (NovoLIN N) PER UNIT SQ SCH (17:09)
--- NOTE | 2021-04-01 19:24 | HPEPDOC ---
[facility] Medical History & Physical Date of Admission Apr 01, 2021 Date of Service: Apr 01, 2021 Primary Care Physician: DANIELLA SAINZ NP Attending Physician: MONA DIETZ MD History and Physical CHIEF COMPLAINT: Right lower extremity edema and pain HISTORY OF PRESENT ILLNESS:. Mr. Morrison is a 60-year-old male with a past medical history of diabetes and hyperlipidemia who presents to the ER with right foot discomfort. Patient's son reported that he noticed increasing redness and had marked around the right medial metatarsal joint, where he first noted some fluctuance of fluid underneath the skin. He states that he first noticed this on 03/30/2021. After noticing the increasing margins of the fluctuance and increasing redness moving up the lower right leg, the son decided to bring the patient into the ER. The patient denies severe pain at this time. He reports that he lost feeling in both of his feet a few years ago. Patient denies a proper diagnosis of diabetes and believes that he does not have diabetes. He reports taking metformin and glyburide daily. However, he denies taking any insulin at this time. He also reports that he does not use a cane or walker to ambulate short distances despite falling at times due to decreased sensation at the bottom of his feet. The patient's son reports that the patient walks around outside barefoot often. He also reports that there are often pieces of copper coils on the ground. The patient denies feeling anything before the onset of these symptoms. The patient denies any known trauma. The patient believes that he may have been stung by a bee since he remembers seeing some bees around his feet, the last time he was walking barefoot outside in the grass. The patient's son also reports that he has had a long-standing right lower leg weeping ulcer. Patient does not receive any outpatient medical care for this at this time. The patient's son name is Epifanio and his cell phone number was provided to us: [phone]. Patient has a known medical history of multiple wounds and abscesses resulting from Staphylococcus, MRSA, pseudomonas, and other bacterial species, since 2009 per [facility] records. PAST MEDICAL HISTORY: 1. Insulin-dependent type 2 diabetes mellitus, noncompliant on medication. 2. Hyperlipidemia, per patient. Patient does not take any medication for this. 3. Depressive disorder: per outpatient notes by Daniella Sainz 4. Multiple hospitalizations for wounds and abscesses from infections with: Staphylococcus aureus, Staphylococcus Warneri, MRSA, Aerococcus viridans, pseudomonas aeruginosa over the past decade. PAST SURGICAL HISTORY: 1. Right wrist surgery, requiring metal placement, years ago. Patient cannot recall. 2. Right leg surgery due to severe fracture, possibly 2009, patient cannot recall. SOCIAL HISTORY: Resides: With son Tobacco use: Denies ETOH: Denies Illicit drug use: Denies. Diet: Patient reports "I eat whatever I want when I want" FAMILY HISTORY: Denies any diabetic or cardiovascular medical, family history. ALLERGIES: Please see below. REVIEW OF SYSTEMS: General: Patient denies fevers, chills, night sweats HEENT: Patient denies headaches Cardiovascular: Patient denies chest pain Respiratory: Patient denies shortness of breath, cough GI: Patient denies abdominal pain, nausea, vomiting, diarrhea : Patient denies increased frequency or pain with urination Extremities: Patient denies pain in extremities, despite findings in HPI. Neurological: Patient reports numbness in the legs. Skin: Patient denies any new rashes or lesions. Hematologic: Patient denies any easy bleeding or bruising. Lymphatic: Patient denies any lumps lumps or bumps in neck, axilla, or groin HOME MEDICATIONS: Please see below. PHYSICAL EXAMINATION: VITAL SIGNS: Temperature 98.7, temporal, pulse 68, respiratory rate 16, blood pressure 142/79, pulse oximetry, 100 % on room air. General: An elderly gentleman who is sitting comfortably upright on the rney HEENT: Normocephalic, atraumatic, moist mucous membranes, EOMI Cardiac: Regular rate and rhythm, no murmurs, normal S1, normal S2 Respiratory: Clear to auscultation bilaterally. No wheezes, rhonchi, rales Abdominal: Nondistended, nontender to palpation, normal bowel sounds Neurological: Good tone, normal upper and lower extremity strength, 5 out of 5 Psychiatric: Patient denies multiple medical diagnoses that are known in the chart and listed by his medical provider, patient expresses frustration about being diagnosed with these diseases including diabetes mellitus type 2 and hyperlipidemia Extremities: Good pedal pulses bilaterally, open puncture wound with diameter of approximately 2 cm present at medial right metatarsal joint with active drainage of white purulent fluid, with surrounding skin breakage and oozing. The right foot is also erythematous, which blanches with pressure, and former than the left foot. Skin breakdown present on distal right anterior lower leg. There is also an open weeping ulcer present on the medial aspect of the right tibia. No open ulcerations are appreciated on the left foot. Pitting edema of the distal lower extremities, right greater than left. LABORATORY DATA: See below. IMAGING: Right foot x-ray: 04/01/2021 Soft tissue swelling with small amounts of subcutaneous emphysema, suspected skin ulceration, and small metallic wirelike foreign body noted overlying the 1st metatarsophalangeal joint. Findings are suspicious for abscess with foreign body. MICROBIOLOGY: Please see below. ASSESSMENT/PLAN: Patient is a 60-year-old male with a past medical history of type 2 diabetes who presents with a right medial metatarsal joint abscess with foreign body infiltration and resulting right lower extremity edema. #Right medial metatarsal joint abscess and spreading infection secondary to foreign body infiltration. Patient has a known history of diabetic neuropathy, therefore pseudomonas aeruginosa is of concern. IV Ceftaroline every 12 hours was started for broad-spectrum coverage, due to extensive history of bacterial infections. IV Zosyn has been ordered for its pseudomonas coverage. Patient received vancomycin in the ED due to a known history of MRSA. Blood cultures were unfortunately ordered after vancomycin has already been administered in the ED. Wound cultures are pending, which were also ordered after Inc. myosin had been administered in the ED. The ER consulted Dr. Stanford on the surgery service to see the patient for surgical management. Patient will be kept nothing by mouth after midnight in anticipation for surgery per Dr. Stanford. #IDDMT2 with peripheral neuropathy. Patient is noncompliant on his medications at home, however, we have records of what was prescribed by the patient's primary care provider and the list included NovoLog of 14 units daily. Patient has been started on insulin NPH 5 units subcutaneous twice a day. Patient has been placed on a sliding scale insulin. Hypoglycemic protocol has been ordered. Patient has been placed on consistent carbohydrate diet until midnight (patient will be nothing by mouth due to anticipated surgery. #Right lower leg ulcer. Right lower leg weeping ulcer is likely secondary to poor vascular supply secondary to poorly-controlled diabetes mellitus, given history of peripheral neuropathy. Patient's son reports that this ulcer has been present for a while now, although he cannot describe the exact timing. Consider wound care and possible outpatient management after infection has been treated in the hospital. #History of hospital visits for multiple soft tissue infections. MRSA bacteremia, 10/05/2010, her one blood culture Pseudomonas infection of right tibia, 11/12/2010 Staphylococcus aureus and Staphylococcus Warneri, of the right second MCP joint, 11/20/2020 DVT prophylaxis: Subcutaneous Lovenox. Vital Signs Vital Signs Date Time Temp Pulse Resp B/P (MAP) Pulse Ox O2 Delivery O2 Flow Rate FiO2 04/01/21 14:15 98.5 70 19 149/84 (105) 97 Room Air Laboratory Data Labs 24H Laboratory Tests 2 04/01/21 09:51: Immature Granulocyte % (Auto) 1.6, Neutrophils (%) (Auto) 79.4H, Lymphocytes (%) (Auto) 12.3L, Monocytes (%) (Auto) 5.4, Eosinophils (%) (Auto) 0.8, Basophils (%) (Auto) 0.5, Neutrophils # (Auto) 8.5, Lymphocytes # (Auto) 1.3L, Monocytes # (Auto) 0.6, Eosinophils # (Auto) 0.1, Basophils # (Auto) 0.1, Nucleated Red Blood Cells % (auto) 0.0, Erythrocyte Sedimentation Rate 67H, Anion Gap 5L, Glomerular Filtration Rate > 60.0, Calcium Level 8.8, Total Bilirubin 0.6, Aspartate Amino Transf (AST/SGOT) 10, Alanine Aminotransferase (ALT/SGPT) 11L, Alkaline Phosphatase 106, C-Reactive Protein, Quantitative 18.90H, Total Protein 7.3, Albumin 2.6L, Albumin/Globulin Ratio 0.6 04/01/21 11:13: Coronavirus (COVID-19)(PCR) NEGATIVE, Influenza Type A (RT-PCR) NEGATIVE, Influenza Type B (RT-PCR) NEGATIVE, Respiratory Syncytial Virus (PCR) NEGATIVE 04/01/21 13:52: Estimated Mean Plasma Glucose 266H, Hemoglobin A1c 10.9 04/01/21 16:33: Bedside Glucose (Misc Panel) 258H CBC/BMP Laboratory Tests 04/01/21 09:51 Microbiology Microbiology 04/01/21 Gram Stain - Final, Resulted 04/01/21 Wound Culture, Resulted Pending 04/01/21 Blood Culture, Received Pending 04/01/21 Blood Culture, Received Pending Home Medications Scheduled Aspirin (Aspirin EC) 81 Mg Tablet.dr, 81 MG PO DAILY Glyburide (Glyburide) 5 Mg Tablet, 5 MG PO DAILY Insulin NPH Human Isophane (Novolin N) 100 Unit/1 Ml Vial, 14 UNITS SQ DAILY TAKES WITH LUNCH Metformin HCl (Metformin HCl ER) 500 Mg Tab.er.24h, 500 MG PO QHS Allergies Coded Allergies: acetaminophen (Verified Adverse Reaction, Intermediate, nightmares, 05/23/19) A-FIB/CHADSVASC A-FIB History Current/History of A-Fib/PAF?: No GME ATTESTATION GME ATTESTATION My faculty preceptor for this patient encounter was physically present during the encounter and was fully available. All aspects of the patient interview, examination, medical decision making process, and medical care plan development were reviewed and approved by the faculty preceptor. The faculty preceptor is aware and concurs with the plan as stated in the body of this note and will attest to such by his/her cosignature. Bhavik Hanson DO Apr 01, 2021 19:24
[2021-04-01] MEDS: PIPERACILLIN/TAZOBACTAM SOD 4.5 GM in D5W MINI-BAG PLUS 50 ML IV SCH (20:03)
[2021-04-01 21:27] VITALS: BP 115/66
[2021-04-02] MEDS: PIPERACILLIN/TAZOBACTAM SOD 4.5 GM in D5W MINI-BAG PLUS 50 ML IV SCH ×4 (02:29→20:47)
[2021-04-02] MEDS: CEFTAROLINE FOSAMIL 600 MG in D5W MINI-BAG PLUS 50 ML IV SCH (03:57)
[2021-04-02 06:00] VITALS: BP 152/80
[2021-04-02 06:02] LABS: BASO # 0.1 10^3/uL (0.0-0.2); BASO % 0.6 % (0.0-1.0); EOS # 0.2 10^3/uL (0.0-0.5); EOS % 2.1 % (0.0-3.0); HEMATOCRIT 35.5 % (42.0-52.0); LYMPH % 11.9 % (24.0-44.0); MEAN CORPUSCULAR HEMOGLOBIN 31.5 pg (27.0-33.0); MEAN CORPUSCULAR HGB CONC 33.8 g/dl (32.0-36.5); MEAN CORPUSCULAR VOLUME 93.2 fl (80.0-96.0); MONO # 0.6 10^3/uL (0.0-0.8); MONO % 6.3 % (2.0-8.0); NEUTROPHILS # 6.8 10^3/uL (1.5-8.5); NEUTROPHILS % 77.7 % (36.0-66.0); PLATELET COUNT, AUTOMATED 266 10^3/uL (150-450); RED BLOOD COUNT 3.81 10^6/uL (4.30-6.10); WHITE BLOOD COUNT 8.7 10^3/uL (4.0-10.0)
[2021-04-02 06:31] LABS: BLOOD UREA NITROGEN 9 MG/DL (7-18); CALCIUM LEVEL 8.4 MG/DL (8.8-10.2); CARBON DIOXIDE LEVEL 27 MEQ/L (21-32); CHLORIDE LEVEL 101 MEQ/L (98-107); CREATININE FOR GFR 0.78 MG/DL (0.70-1.30); GLOMERULAR FILTRATION RATE > 60.0 (>49); GLUCOSE, FASTING 348 MG/DL (70-100); POTASSIUM SERUM 3.8 MEQ/L (3.5-5.1); SODIUM LEVEL 136 MEQ/L (136-145)
[2021-04-02] MEDS: HumuLIN N INSULIN (NovoLIN N) PER UNIT SQ SCH (09:01)
[2021-04-02] MEDS: HumaLOG INSULIN (NovoLOG) PER UNIT SC SCH ×4 (09:02→22:32)
[2021-04-02] MEDS: ENOXAPARIN 40MG/0.4ML SYRINGE (J1650 PER 10MG) SC SCH (09:02)
--- NOTE | 2021-04-02 09:25 | IPNPDOC ---
Text Note Date of Service The patient was seen on 04/02/21. NOTE No acute events overnight. He feels much better, and says the swelling has imp roved. He is able to see the space between his toes now. He is eating well, and ambulating to the bathroom on his own without any problems. No current complaints. VSSAF NAD ext - the right foot first MTP joint still has active purulent drainage, erythema and swelling have improved. There is necrotic tissue in the wound bed that would likely benefit from debridement. labs - below A) 60 y/o male with abscess, and possible foreign body in the right foot. P) recommend podiatry consult for possible I+D, my only concern is the proximity to the joint. If podiatry is unavailable, then I will do some debridement at the bedside this afternoon. I would recommend to avoid probing around for a foreign body until this acute infection has subsided. will follow. Michael Stanford DO VS,Reggie, I+O VS, Reggie, I+O Laboratory Tests 04/01/21 09:51 04/02/21 05:37 Vital Signs Date Time Temp Pulse Resp B/P (MAP) Pulse Ox O2 Delivery O2 Flow Rate FiO2 04/02/21 06:00 99.6 65 17 152/80 (104) 96 Room Air I&O- Last 24 Hours up to 6 AM 04/02/21 05:59 Intake Total 1245 ml Output Total 0 ml Balance 1245 ml LENCHO STANFORD DO Apr 02, 2021 09:25
--- NOTE | 2021-04-02 10:00 | CR ---
CONSULTATION DATE: 04/01/2021 REASON FOR CONSULTATION: Foot abscess. HISTORY OF PRESENT ILLNESS: The patient is a 60-year-old male with a history of diabetes, hyperlipidemia, who presented to the emergency room with pain in the right foot. He started having some swelling about three days ago. His son noticed that there was increased redness and swelling in foot and advised him to come to the emergency room for evaluation. He denies having any feeling in his feet. He lost that a few years ago. He walks around on his heels most of the time. Recently he has been doing a lot of work on his vehicle as well as mowing the lawn. However, he claims that he has never done that without any shows on. When he came into the emergency room, he did have x-ray done that shows a possible piece of metal in the foot at the area of the inflammation but he denies having any injury to the area recently. He denies any pains, no fevers or chills at home. He denied diabetes to me. However, it is listed on his chart as having diabetes and he is currently on diabetic medications as well. He denies any trauma to the area. His thought was that it could have been a bee sting but he denies any other possible source for his injury. PAST MEDICAL HISTORY: 1. Diabetes. 2. Hyperlipidemia. 3. Depression. 4. Multiple hospitalizations for wound infections. PAST SURGICAL HISTORY: 1. Right wrist surgery. 2. Right leg surgery. SOCIAL HISTORY: Negative. FAMILY HISTORY: Noncontributory. ALLERGIES: TYLENOL. MEDICATIONS: Please see med rec. REVIEW OF SYSTEMS: Pertinent positives and negatives seen in the HPI. PHYSICAL EXAMINATION: GENERAL: Patient is A&O x3, in no acute distress. VITALS: Temperature 98.5, pulse 70, respirations 19, blood pressure 149/84, pulse ox 97% on room air. HEENT: Pupils equally round, reactive to light and accommodation. HEART: S1, S2. Regular rate and rhythm. LUNGS: Clear to auscultation bilaterally. ABDOMEN: Soft, nontender, nondistended. EXTREMITIES: Bilateral lower extremity edema. There is increased swelling in the right foot all the way up to the right knee. There is erythema in the right foot and up just below the knee as well. The right foot is extremely swollen. There is edema over the first MTP joint extending about long term up the foot itself. On the medial aspect of the first digit MTP joint, there is an open wound with very minimal drainage. I was able to probe it at the bedside, remove part of the overlying necrotic tissue and was able to express a large amount of purulent fluid from the area. LABORATORY DATA: White count 10.6, hemoglobin 12.3, platelets 273, potassium 4.3, creatinine 0.8. Hemoglobin A1c is 10.9. IMAGING: X-ray of the foot shows abscess with small central foreign body over the right foot MTP joint. ASSESSMENT AND PLAN: Patient is a 60-year-old male with abscess with possible metallic foreign body to the right foot. RECOMMENDATION: To give it a warm soak this evening with soap and water, clean up the area really well. Continue with IV fluids and antibiotics. The wound is already open and actively draining. No need for any further incision at this time. Monitor him overnight and possible bedside debridement tomorrow depending on his progress. The patient verbalized understanding of his plan and he agreed. He is anxious to just get out of here and go home.
[2021-04-02 11:40] LABS: VANCOMYCIN RANDOM 4.2 UG/ML
[2021-04-02] MEDS: VANCOMYCIN HCL 1,000 MG, VIAL MATE ADAPTER 1 EACH in NS 250 ML IV SCH ×2 (12:33→22:31)
[2021-04-02 14:00] VITALS: BP 139/77
[2021-04-02] MEDS ORDERED: VANCOMYCIN HCL 750 MG, VIAL MATE ADAPTER 1 EACH in NS 250 ML IV ONE (14:00)
--- NOTE | 2021-04-02 15:33 | IPNPDOC ---
Text Note Date of Service The patient was seen on 04/02/21. NOTE Patient was seen and examined this morning. The patient is doing okay is possi tiffanie waiting for debridement versus surgery and podiatry is going to see the patient today. PHYSICAL EXAMINATION: General: An elderly gentleman who is sitting comfortably upright on the gurney HEENT: Normocephalic, atraumatic, moist mucous membranes, EOMI Cardiac: Regular rate and rhythm, no murmurs, normal S1, normal S2 Respiratory: Clear to auscultation bilaterally. No wheezes, rhonchi, rales Abdominal: Nondistended, nontender to palpation, normal bowel sounds Neurological: Good tone, normal upper and lower extremity strength, 5 out of 5 Psychiatric: Patient denies multiple medical diagnoses that are known in the chart and listed by his medical provider, patient expresses frustration about being diagnosed with these diseases including diabetes mellitus type 2 and hyperlipidemia Extremities: open puncture wound with diameter of approximately 2 cm present at medial right metatarsal joint with active drainage of white purulent fluid, with surrounding skin breakage and oozing. The right foot is also erythematous, which blanches with pressure, and former than the left foot. Skin breakdown present on distal right anterior lower leg. There is also an open weeping ulcer present on the medial aspect of the right tibia. No open ulcerations are appreciated on the left foot. Pitting edema of the distal lower extremities, right greater than left. IMAGING: Right foot x-ray: 04/01/2021 Soft tissue swelling with small amounts of subcutaneous emphysema, suspected skin ulceration, and small metallic wirelike foreign body noted overlying the 1st metatarsophalangeal joint. Findings are suspicious for abscess with foreign body. Microbiology reviewed Assessment and plan Mr. Morrison is a 60-year-old male with a past medical history of diabetes and hyperlipidemia who presents to the ER with right foot discomfort. Patient's son reported that he noticed increasing redness and had marked around the right medial metatarsal joint, where he first noted some fluctuance of fluid underneath the skin. He states that he first noticed this on 03/30/2021. After noticing the increasing margins of the fluctuance and increasing redness moving up the lower right leg, the son decided to bring the patient into the ER. He reports that he lost feeling in both of his feet a few years ago.The patient's son reports that the patient walks around outside barefoot often. He also reports that there are often pieces of copper coils on the ground. . He has been currently admitted with a right medial metatarsal joint abscess with foreign body infiltration and resulting right lower extremity cellulitis. 1. Possible Right medial metatarsal joint abscess with cellulitis secondary to foreign body infiltration. Patient has a known history of diabetic neuropathy, therefore pseudomonas aeruginosa is of concern. The wound culture has been going MSSA. The patient has been started on IV vancomycin and IV Zosyn. Podiatry has been on board and Dr. Gaby Umaña probably will do a bedside debridement versus OR. Surgery was also consulted on this patient. Wound cultures are growing MSSA . Blood cultures are pending. Rest of the recommendations after the patient gets the debridement versus surgery. 2. IDDMT2 with peripheral neuropathy. Very noncompliant apparently has no insight that he has diabetes. Denies having any diabetes. He has been started on Levemir 16 units twice a day and his A1c is 10.6. He also has been kept on sliding scale insulin. We'll optimize his medications on discharge. Continue holding oral hyperglycemics at this time. 3. History of hospital visits for multiple soft tissue infections. MRSA bacteremia, 10/05/2010, her one blood culture , Pseudomonas infection of right tibia, 11/12/2010, Staphylococcus aureus and Staphylococcus Warneri, of the right second MCP joint, 11/20/2020 DVT prophylaxis: Subcutaneous Lovenox. Disposition unknown at this time. VS,Fishbone, I+O VS, Fishbone, I+O Laboratory Tests 04/02/21 05:37 Vital Signs Date Time Temp Pulse Resp B/P (MAP) Pulse Ox O2 Delivery O2 Flow Rate FiO2 04/02/21 06:00 99.6 65 17 152/80 (104) 96 Room Air I&O- Last 24 Hours up to 6 AM 04/02/21 06:00 Intake Total 1485 ml Output Total 350 ml Balance 1135 ml MONA DIETZ MD Apr 02, 2021 15:33
--- NOTE | 2021-04-02 16:58 | CR ---
CONSULTATION DATE: 04/02/2021 REASON FOR CONSULTATION: Foot infection. HISTORY OF PRESENT ILLNESS: Sharath Morrison is a 60-year-old diabetic male who is admitted due to right foot infection. The patient is not a good historian and is otherwise agitated today. His son, however, is present who helps aid in some of the history. He believes that the wound has been present for about four days. The patient has neuropathy and does not have good feeling in his feet. He has been treated with antibiotics with some improvement, but continues to have purulent drainage from this foot. X-rays were taken, which show a foreign body at that time. PAST MEDICAL HISTORY: 1. Diabetes noncompliant with medication and diet. 2. Hyperlipidemia. 3. Depressive disorder. 4. Multiple histories of infections. PAST SURGICAL HISTORY: 1. Right wrist surgery. 2. Right leg surgery. SOCIAL HISTORY: Lives with his son. Denies alcohol or tobacco use. REVIEW OF SYSTEMS: He denies nausea, vomiting, fever, or chills. PHYSICAL EXAMINATION: Vitals are examined T-max is 99.6. On lower extremity examination there is erythema and edema to the right foot with a purulent abscess at the medial and plantar aspect of the metatarsophalangeal joint. LABORATORY DATA: White blood cell count today is 8.7. ESR on admission was 67. CRP was 18.9. His hemoglobin A1c was 10.9. Wound culture thus far is growing Staphylococcus aureus. IMAGING DATA: An x-ray shows findings suggestive of abscess with a small metallic foreign body near the first metatarsal head. ASSESSMENT: Diabetic male with right foot abscess foreign body. PLAN: Bedside incision was performed. Some drainage was able to be extracted; however, there is a significant amount of purulence, necrotic and nonviable tissue, as well as the foreign body, which will require operative incision and drainage. This will be performed tomorrow. He is to be n.p.o. at midnight. The patient was very disappointed to hear he would not be leaving today. I explained that his abscess puts him at very high risk for further infection, amputation, and if he leaves against medical advice potentially even secondary to sepsis. The patient begrudgingly was willing to stay for necessary treatment.
[2021-04-02 17:47] VITALS: BP 150/85
[2021-04-02] MEDS: LEVEMIR (INSULIN DETEMIR) 1 UNITS/0.01ML SC SCH (18:29)
[2021-04-02 21:41] VITALS: BP 120/67
[2021-04-03] VITALS (8 sets, daily range): BP systolic 146–167; BP diastolic 77–94
[2021-04-03] MEDS: PIPERACILLIN/TAZOBACTAM SOD 4.5 GM in D5W MINI-BAG PLUS 50 ML IV SCH ×4 (01:13→19:55)
[2021-04-03] MEDS: VANCOMYCIN HCL 1,000 MG, VIAL MATE ADAPTER 1 EACH in NS 250 ML IV SCH ×3 (05:21→23:06)
[2021-04-03 06:06] LABS: BASO # 0.1 10^3/uL (0.0-0.2); BASO % 0.9 % (0.0-1.0); EOS # 0.3 10^3/uL (0.0-0.5); EOS % 3.9 % (0.0-3.0); HEMATOCRIT 33.6 % (42.0-52.0); HEMOGLOBIN 11.2 g/dl (13.5-17.5); LYMPH # 1.7 10^3/uL (1.5-5.0); LYMPH % 21.2 % (24.0-44.0); MEAN CORPUSCULAR HEMOGLOBIN 31.1 pg (27.0-33.0); MEAN CORPUSCULAR HGB CONC 33.3 g/dl (32.0-36.5); MEAN CORPUSCULAR VOLUME 93.3 fl (80.0-96.0); MONO # 0.6 10^3/uL (0.0-0.8); MONO % 7.1 % (2.0-8.0); NEUTROPHILS # 5.1 10^3/uL (1.5-8.5); PLATELET COUNT, AUTOMATED 278 10^3/uL (150-450); WHITE BLOOD COUNT 7.8 10^3/uL (4.0-10.0)
[2021-04-03 06:23] LABS: BLOOD UREA NITROGEN 10 MG/DL (7-18); CALCIUM LEVEL 8.7 MG/DL (8.8-10.2); CARBON DIOXIDE LEVEL 30 MEQ/L (21-32); CHLORIDE LEVEL 103 MEQ/L (98-107); CREATININE FOR GFR 0.81 MG/DL (0.70-1.30); GLOMERULAR FILTRATION RATE > 60.0 (>49); GLUCOSE, FASTING 271 MG/DL (70-100); POTASSIUM SERUM 3.7 MEQ/L (3.5-5.1); SODIUM LEVEL 139 MEQ/L (136-145)
[2021-04-03] MEDS: HumaLOG INSULIN (NovoLOG) PER UNIT SC SCH ×4 (07:30→21:00)
[2021-04-03] MEDS: LEVEMIR (INSULIN DETEMIR) 1 UNITS/0.01ML SC SCH ×2 (08:16→21:13)
[2021-04-03] MEDS ORDERED: LIDOCAINE 1% SDV 30ML VIAL As Ordered ONE (10:32)
[2021-04-03] MEDS ORDERED: BUPIVACAINE HCL 0.5% 30 ML VIAL As Ordered ONE (10:32)
[2021-04-03] MEDS ORDERED: fentaNYL 100 MCG/2 ML INJECTION (J3010) As Ordered ONE (11:46)
[2021-04-03] MEDS ORDERED: propofoL 200 MG/20 ML VIAL As Ordered ONE (11:46)
[2021-04-03] MEDS ORDERED: MIDAZOLAM INJ 2MG/2ML VIAL (J2250 PER 1MG) As Ordered ONE (11:46)
[2021-04-03] MEDS ORDERED: ONDANSETRON 4MG/2ML VIAL IV PRN (12:40)
[2021-04-03] MEDS ORDERED: fentaNYL 100 MCG/2 ML INJECTION (J3010) IV PRN (12:40)
--- NOTE | 2021-04-03 13:05 | RO ---
OPERATIVE NOTE DATE OF OPERATION: 04/03/2021 PREOPERATIVE DIAGNOSIS: Right foot infection/abscess. POSTOPERATIVE DIAGNOSIS: Right foot infection/abscess. PROCEDURE: Right foot incision and drainage. SURGEON: Ruddy Torres DPM PEDODONTIST: None. ANESTHESIA: Monitored anesthesia care, preoperative injection of 15 mL of 1:1 mixture of 1% lidocaine plain, 0.5% Marcaine plain. ESTIMATED BLOOD LOSS: Minimal. MATERIALS: 3-0 nylon. INJECTIONS: None. SPECIMENS: Right foot abscess, aerobic and anaerobic cultures, as well as right foot wire/foreign body. COMPLICATIONS: None. CONDITION: Stable. Sharath Morrison is a 60-year-old diabetic male who was admitted due to right foot infection. He has been treated with antibiotics without improvement. He presents today for surgical correction. The patient's side and site were identified and marked in the preoperative area. Consent was reviewed and obtained. The risks, complications, and alternatives of the procedures were explained to the patient in detail, and all questions were answered. DESCRIPTION OF PROCEDURE: Patient was brought to the operating room and placed on the operating table in the supine position. Monitored anesthesia care was delivered by the anesthesia team. Preoperative injection of 15 mL 1:1 mixture of 1:1 mixture of 1% lidocaine plain, 0.5% Marcaine plain was injected into the right foot. Right foot was prepped and draped in normal sterile fashion. Tourniquet was applied to the right thigh and inflated at 250 mmHg. Foot was inspected. There were two ulcerations at the medial and plantar aspect of the 1st metatarsal head with significant purulent drainage coming from these. An incision was made distal and proximal and then connecting the two ulcerations with a #15 blade. Significant purulence was expressed. Culture swabs were taken of the purulent fluid. Debridement of nonviable tissue was performed with a rongeur. A small metallic wire was noted during this, and this was removed and sent for pathology. An additional plantar incision was made at the plantar 1st interspace. Not much purulence was noted here. Largely, the infection seemed to be tracking along the dorsal, medial, and plantar 1st metatarsophalangeal joint capsule as well as some of the tendons. Site was irrigated with 3000 liters pulse irrigation normal saline until no further purulent drainage was noted. The plantar interspace incision was repaired with 3-0 nylon, and the other incision/wound was packed with saline gauze. Sterile dressings were applied. Tourniquet was deflated. Patient was brought to the PACU with vital signs stable, neurovascular status intact. He will be readmitted to the floor for continued antibiotics and monitoring.
[2021-04-03] MEDS ORDERED: HumaLOG INSULIN (NovoLOG) PER UNIT SC ONE (13:45)
--- NOTE | 2021-04-03 13:47 | IPNPDOC ---
Text Note Date of Service The patient was seen on 04/03/21. NOTE Patient was seen and examined this morning. The patient is doing okay, had a b edside I and D with podiatry yesterday and they're planning to take him to the or for further deep). PHYSICAL EXAMINATION: General: An elderly gentleman who is sitting comfortably upright on the gurney HEENT: Normocephalic, atraumatic, moist mucous membranes, EOMI Cardiac: Regular rate and rhythm, no murmurs, normal S1, normal S2 Respiratory: Clear to auscultation bilaterally. No wheezes, rhonchi, rales Abdominal: Nondistended, nontender to palpation, normal bowel sounds Neurological: Good tone, normal upper and lower extremity strength, 5 out of 5 Psychiatric: Patient denies multiple medical diagnoses that are known in the chart and listed by his medical provider, patient expresses frustration about being diagnosed with these diseases including diabetes mellitus type 2 and hyperlipidemia Extremities: Initially there was open puncture wound with diameter of approximately 2 cm present at medial right metatarsal joint with active drainage of white purulent fluid, with surrounding skin breakage and oozing, but currently it is covered with a surgical dressing.. The right foot is also e rythematous, which blanches with pressure. Skin breakdown present on distal right anterior lower leg. Pitting edema of the distal lower extremities, right greater than left. IMAGING: Right foot x-ray: 04/01/2021 Soft tissue swelling with small amounts of subcutaneous emphysema, suspected skin ulceration, and small metallic wirelike foreign body noted overlying the 1st metatarsophalangeal joint. Findings are suspicious for abscess with foreign body. Microbiology reviewed Assessment and plan Mr. Morrison is a 60-year-old male with a past medical history of diabetes and hyperlipidemia who presents to the ER with right foot discomfort. Patient's son reported that he noticed increasing redness and had marked around the right medial metatarsal joint, where he first noted some fluctuance of fluid underneath the skin. He states that he first noticed this on 03/30/2021. After noticing the increasing margins of the fluctuance and increasing redness moving up the lower right leg, the son decided to bring the patient into the ER. He reports that he lost feeling in both of his feet a few years ago.The patient's son reports that the patient walks around outside barefoot often. He also reports that there are often pieces of copper coils on the ground. . He has been currently admitted with a right medial metatarsal joint abscess with foreign body infiltration and resulting right lower extremity cellulitis for which he got a bedside I and D with podiatry yesterday and is scheduled to go to the OR, possibly today on 04/03/21. 1. Possible Right medial metatarsal joint abscess with cellulitis secondary to foreign body infiltration. The wound culture has been going MSSA. The patient has been started on IV vancomycin and IV Zosyn. Podiatry has been on board and Dr. Gaby Umaña did an incision and drainage on 04/02/21. As there is motivated, necrotic tissue. The patient is going to the OR for debridement. We will talk to podiatry regarding any possibility of ostium mellitus to decide whether the patient would require long-term Wound cultures are growing MSSA and E faecalis. Blood cultures are pending. Continue the patient on IV vancomycin and Zosyn at this time. 2. IDDMT2 with peripheral neuropathy. Very noncompliant apparently has no insight that he has diabetes. Denies having any diabetes. He has been started on Levemir 8 units twice a day and his A1c is 10.6. He also has been kept on sliding scale insulin. We'll optimize his medications on discharge. Continue holding oral hyperglycemics at this time. 3. History of hospital visits for multiple soft tissue infections. MRSA bacteremia, 10/05/2010, her one blood culture , Pseudomonas infection of right tibia, 11/12/2010, Staphylococcus aureus and Staphylococcus Warneri, of the right second MCP joint, 11/20/2020 DVT prophylaxis: Subcutaneous Lovenox. Disposition unknown at this time. VS,Fishbone, I+O VS, Fishbone, I+O Laboratory Tests 04/03/21 05:50 Vital Signs Date Time Temp Pulse Resp B/P (MAP) Pulse Ox O2 Delivery O2 Flow Rate FiO2 04/03/21 12:51 57 18 163/84 (110) 94 Room Air 04/03/21 12:26 97.0 I&O- Last 24 Hours up to 6 AM 04/03/21 06:00 Intake Total 2945 ml Output Total 800 ml Balance 2145 ml MONA DIETZ MD Apr 03, 2021 13:47
[2021-04-04 02:00] VITALS: BP 145/74
[2021-04-04] MEDS: PIPERACILLIN/TAZOBACTAM SOD 4.5 GM in D5W MINI-BAG PLUS 50 ML IV SCH ×4 (02:07→20:31)
[2021-04-04 06:00] VITALS: BP 152/83
[2021-04-04] MEDS: VANCOMYCIN HCL 1,000 MG, VIAL MATE ADAPTER 1 EACH in NS 250 ML IV SCH (06:28)
[2021-04-04 07:27] LABS: HEMATOCRIT 35.7 % (42.0-52.0); HEMOGLOBIN 11.9 g/dl (13.5-17.5); MEAN CORPUSCULAR HGB CONC 33.3 g/dl (32.0-36.5); PLATELET COUNT, AUTOMATED 301 10^3/uL (150-450); RED BLOOD COUNT 3.84 10^6/uL (4.30-6.10); WHITE BLOOD COUNT 9.8 10^3/uL (4.0-10.0)
[2021-04-04 07:53] LABS: BLOOD UREA NITROGEN 7 MG/DL (7-18); CALCIUM LEVEL 8.1 MG/DL (8.8-10.2); CARBON DIOXIDE LEVEL 26 MEQ/L (21-32); CHLORIDE LEVEL 102 MEQ/L (98-107); CREATININE FOR GFR 0.75 MG/DL (0.70-1.30); GLOMERULAR FILTRATION RATE > 60.0 (>49); GLUCOSE, FASTING 243 MG/DL (70-100); POTASSIUM SERUM 3.6 MEQ/L (3.5-5.1); SODIUM LEVEL 136 MEQ/L (136-145)
[2021-04-04] MEDS: HumaLOG INSULIN (NovoLOG) PER UNIT SC SCH ×4 (08:17→21:00)
[2021-04-04] MEDS: ENOXAPARIN 40MG/0.4ML SYRINGE (J1650 PER 10MG) SC SCH (09:36)
[2021-04-04] MEDS: LEVEMIR (INSULIN DETEMIR) 1 UNITS/0.01ML SC SCH ×2 (09:37→20:32)
[2021-04-04 10:00] VITALS: BP 132/70
--- NOTE | 2021-04-04 12:30 | IPNPDOC ---
Subjective Date Seen The patient was seen on 04/04/21. Subjective Chief Complaint/HPI Mr. Morrison had surgery with Dr. Torres yesterday during which a piece of wire was removed from his foot as well as significant I&D, debridement, and lavage of the tissues. He reports that he is ready to go home today, but he also understood that it was most likely to be Tuesday that he will be discharged. He isn't in too much pain as he has poor sensation in that limb. He admits that he has been passing gas, but hasn't had a BM yet. General: Reports: Normal Appetite Constitutional: Denies: Chills, Fever Pulmonary: Denies: Dyspnea, Cough Cardiovascular: Denies: Chest Pain, Palpitations Gastrointestinal: Denies: Nausea, Abdominal Pain Genitourinary: Denies: Dysuria, Hematuria Psych: Reports: Mood Normal Objective Physical Examination General Exam: Positive: Alert, Cooperative (though he is rough around the edges at first), No Acute Distress Eye Exam: Positive: Conjunctiva & lids normal; Negative: Sclera icteric ENT Exam: Positive: Mucous membr. moist/pink Chest Exam: Positive: Clear to auscultation, Normal air movement Heart Exam: Positive: Rate Normal, Normal S1, Normal S2 Abdomen Exam: Positive: Normal bowel sounds, Soft; Negative: Tenderness Extremity Exam: Positive: Other (His R foot was wrapped in a c/d/i bandage. I didn't request it be unwrapped as I'm not going to manager exchange based on the look of the foot. I also communicated with Dr. Torres who had looked at it earlier in the day. The erythema is within the marked extent on the right lower leg.); Negative: Edema Psych Exam: Positive: Mood NL, Oriented x 3 Assessment /Plan Assessment Mr. Morrison is POD #1 for R foot I&D with a wire foreign body removal. Problems (1) Cellulitis of right lower leg Status: Acute Discussed With: Patient Problem Text: He remains on vancomycin and Zosyn while we await the deep cultures that were taken operatively yesterday. This regimen is at least keeping things stable. We will wait to see if/what an adequate oral option could be for him. (2) Abscess of right foot including toes Status: Acute Discussed With: Chain Sales Representative, Patient Problem Specific Plan: Monitor Clinically Problem Text: Per podiatry there is still quite a bit of erythema noted around his great toe. Hopefully, this will start to make improvement in the next several days. Will continue his current regimen while we await the cultures. (3) Diabetes mellitus with polyneuropathy Status: Chronic Response to Treatment: Uncontrolled Problem Text: His DM is not controlled, primarily to patient denial and/or non- compliance. He used 18 units of SSI in the last 24h, so I added a total of 8 units of basal insulin to his regimen. Will see how this does for him and continue to continue to adjust. We may be able to reintroduce orals soon, however, it is not clear that he will not require another dye study yet so I will hold off for now. (4) Hyperlipidemia Status: Chronic Problem Text: He is not on any medication for this right now. He should be if only for his diabetes. I will start him on a moderate intensity statin which he should be continued on at discharge. He may need a high intensity statin, but I will leave this reevaluation and decision for his PCP. If we start him on SO METHING now it is better than nothing. Plan/VTE VTE Prophylaxis Ordered?: Yes Disposition Anticipate home once he is cleared by podiatry and an adequate antibiotic regimen can be identified for him. This may take 2-3 more days based on the cultures. VS, I&O, 24H, Fishbone Vital Signs/I&O Vital Signs Date Time Temp Pulse Resp B/P (MAP) Pulse Ox O2 Delivery O2 Flow Rate FiO2 04/04/21 10:00 99.0 56 16 132/70 (90) 93 Room Air I&O- Last 24 Hours up to 6 AM 04/04/21 06:00 Intake Total 1080 ml Output Total 660 ml Balance 420 ml Laboratory Data 24H LABS Laboratory Tests 2 04/03/21 12:50: Bedside Glucose (Misc Panel) 256H 04/03/21 14:04: Vancomycin Level Trough 15.6 04/03/21 20:03: Methicillin-Resist S.aureus DNA PCR NOT DETECTED 04/03/21 20:41: Bedside Glucose (Misc Panel) 221H 04/04/21 06:05: Bedside Glucose (Misc Panel) 243H 04/04/21 07:16: Nucleated Red Blood Cells % (auto) 0.0, Anion Gap 8, Glomerular Filtration Rate > 60.0, Calcium Level 8.1L 04/04/21 08:00: Bedside Glucose (Misc Panel) 113 04/04/21 12:02: Bedside Glucose (Misc Panel) 345H CBC/BMP Laboratory Tests 04/04/21 07:16 Microbiology Microbiology 04/03/21 Gram Stain - Final, Resulted 04/03/21 Wound Culture, Resulted Pending 04/03/21 Anaerobic Culture, Resulted Pending 04/01/21 Gram Stain - Final, Complete 04/01/21 Wound Culture - Final, Complete Staphylococcus Aureus Enterococcus Faecalis 04/01/21 Blood Culture - Preliminary, Resulted No Growth after 48 hours. All Specime... 04/01/21 Blood Culture - Preliminary, Resulted No Growth after 48 hours. All Specime... Demarcus Chao MD Apr 04, 2021 12:30
--- NOTE | 2021-04-04 12:46 | IPN ---
PROGRESS NOTE DATE: 04/04/2021 SUBJECTIVE: Patient seen and examined. Denies overnight complaints. Denies nausea, vomiting, fever or chills. LABORATORY DATA: Reviewed. White blood cell count is 9.8. OBJECTIVE: VITAL SIGNS: Reviewed. Maximum temperature (T-max) 99.4. LOWER EXTREMITY EXAMINATION: Wound is inspected. No further necrotic or purulent tissue. There remains erythema surrounding the wound. ASSESSMENT: A 60-year-old diabetic male status post abscess incision and drainage and foreign body removal. PLAN: Await operating room (OR) culture results. Thus far, wound has grown Staphylococcus aureus, methicillin sensitive, as well as Enterococcus. Start Vashe and Hydrofera Blue dressings. Change daily.
[2021-04-04 14:00] VITALS: BP 138/79
[2021-04-04 18:00] VITALS: BP 119/65
[2021-04-04 20:00] VITALS: BP 127/69
[2021-04-04] MEDS: ATORVASTATIN 20 MG TAB PO SCH (20:32)
[2021-04-05] MEDS: PIPERACILLIN/TAZOBACTAM SOD 4.5 GM in D5W MINI-BAG PLUS 50 ML IV SCH ×2 (02:17→09:05)
[2021-04-05 06:00] VITALS: BP 130/69
[2021-04-05] MEDS: LEVEMIR (INSULIN DETEMIR) 1 UNITS/0.01ML SC SCH ×2 (09:04→20:46)
[2021-04-05] MEDS: HumaLOG INSULIN (NovoLOG) PER UNIT SC SCH ×4 (09:05→20:32)
[2021-04-05] MEDS: ENOXAPARIN 40MG/0.4ML SYRINGE (J1650 PER 10MG) SC SCH (09:05)
[2021-04-05 09:16] LABS: BASO # 0.1 10^3/uL (0.0-0.2); BASO % 0.7 % (0.0-1.0); EOS # 0.2 10^3/uL (0.0-0.5); EOS % 2.3 % (0.0-3.0); HEMATOCRIT 34.7 % (42.0-52.0); HEMOGLOBIN 11.5 g/dl (13.5-17.5); LYMPH % 11.8 % (24.0-44.0); MEAN CORPUSCULAR HEMOGLOBIN 31.1 pg (27.0-33.0); MEAN CORPUSCULAR HGB CONC 33.1 g/dl (32.0-36.5); MEAN CORPUSCULAR VOLUME 93.8 fl (80.0-96.0); MONO # 0.5 10^3/uL (0.0-0.8); MONO % 5.6 % (2.0-8.0); NEUTROPHILS # 6.7 10^3/uL (1.5-8.5); NEUTROPHILS % 78.8 % (36.0-66.0); PLATELET COUNT, AUTOMATED 320 10^3/uL (150-450); WHITE BLOOD COUNT 8.6 10^3/uL (4.0-10.0)
[2021-04-05 09:25] LABS: CALCIUM LEVEL 8.2 MG/DL (8.8-10.2); CREATININE FOR GFR 2.09 MG/DL (0.70-1.30); GLOMERULAR FILTRATION RATE 34.5 (>49); MAGNESIUM LEVEL 1.8 MG/DL (1.8-2.4); POTASSIUM SERUM 3.6 MEQ/L (3.5-5.1)
--- NOTE | 2021-04-05 12:01 | IPNPDOC ---
Text Note Date of Service The patient was seen on 04/05/21. NOTE Subjective: Patient is a 60-year-old male with a PMHx with a PMHx of IDDM2, DLP, Depression, Hx of Multiple abscess/ wounds who presented to the emergency room with right lower extremity pain and swelling. Patient was admitted to the hospital service for further evaluation and treatment. General surgery and subsequently podiatry were called on consultation. Patient was seen and examined at the bedside. Patient reports that he feels relatively fine. He denies any nausea, vomiting, abdominal pain or diarrhea. Denies any urinary discomfort. Reports that his right foot is feeling better. Objective: Vitals (See below) General: Lying in bed, no acute distress, comfortable, awake and alert HEENT: NC, AT CVS: +S1S2 Lungs: Fair air entry b/l, -w/r/r Abdomen: Soft, ND, NT Extremities: Right foot with dressing in place Imaging: XR Foot 04/19: 1. Findings suspicious for abscess with small central foreign body. Assessment and plan: Right foot pain / swelling - likely 2/2 cellulitis / abscess - Clinically patient has reported improvement of his pain - Right foot with dressing in place - s/p Leukocytosis - Will trend CRP - Wound cultures 04/01: Staph aureus and Enterococcus faecalis - Wound cultures 04/03: Staph aureus - Blood cultures 04/01: No growth at 72 hours - Imaging noted above - s/p Right foot incision and drainage and removal of foreign body with Dr. Torres on 04/03 - c/w Zosyn; s/p Vancomycin (Antibiotic day #5) Acute kidney injury - Cr baseline generally normal; currently elevated at 2.09 - Will avoid nephrotoxic medications - Will check renal US / urine electrolytes / Urinalysis - Will start IV fluids IDDM2 - c/w ISS and Levemir DLP - c/w Atorvastatin DVT prophylaxis - Will DC Lovenox - Will start Heparin (re: Elevated Cr) Disposition: - Awaiting clinical improvement Reggie TOLLIVER, I+O Reggie TOLLIVER, I+O Laboratory Tests 04/05/21 08:47 Vital Signs Date Time Temp Pulse Resp B/P (MAP) Pulse Ox O2 Delivery O2 Flow Rate FiO2 04/05/21 06:00 99.0 56 18 130/69 (89) 92 Room Air I&O- Last 24 Hours up to 6 AM 04/05/21 06:00 Intake Total 1200 ml Output Total 700 ml Balance 500 ml LUIS FANG MD Apr 05, 2021 12:01
--- NOTE | 2021-04-05 12:11 | REP ---
INDICATION: BRITTNEE COMPARISON: None TECHNIQUE: Real time spence scale ultrasound examination using curved array transducer. FINDINGS: Bilateral kidneys are normal in contour, size, echogenicity, and reniform shape. Right kidney measures 13.0 x 5.4 x 6.1 cm without hydronephrosis, nephrolithiasis, cystic or renal mass lesion. Left kidney measures 13.0 x 5.3 x 6.6 cm and includes mild hydronephrosis without nephrolithiasis, cystic or renal mass lesion. Bladder is grossly unremarkable. IMPRESSION: 1. Mild left renal hydronephrosis suggested. <Electronically signed by Stefan Collazo > 04/05/21 0049
[2021-04-05 12:28] LABS: C REACTIVE PROTEIN QUANTITATIV 14.4 MG/DL (0.00-0.30)
[2021-04-05] MEDS: NS 1,000 ML IV SCH ×2 (12:41→20:46)
[2021-04-05 14:00] VITALS: BP 157/93
[2021-04-05] MEDS: PIPERACILLIN/TAZOBACTAM SOD 3.375 GM in D5W MINI-BAG PLUS 50 ML IV SCH ×2 (14:13→20:45)
[2021-04-05 15:29] LABS: OSMOLALITY URINE 209 MOSM/KG (50-1400)
[2021-04-05 15:45] LABS: SODIUM,RANDOM URINE 30 MEQ/L; UREA NITROGEN RANDOM URINE 221 MG/DL
[2021-04-05] MEDS: ATORVASTATIN 20 MG TAB PO SCH (20:46)
[2021-04-05 20:49] VITALS: BP 160/91
[2021-04-06] MEDS: PIPERACILLIN/TAZOBACTAM SOD 3.375 GM in D5W MINI-BAG PLUS 50 ML IV SCH ×3 (02:07→14:13)
[2021-04-06 05:11] VITALS: BP 165/90
[2021-04-06] MEDS: HEPARIN SOD (PORCINE) 5000UNITS/ML 1ML VIAL/SYRINGE SQ SCH ×2 (05:11→14:00)
[2021-04-06 06:28] LABS: BASO # 0.1 10^3/uL (0.0-0.2); BASO % 0.7 % (0.0-1.0); EOS # 0.2 10^3/uL (0.0-0.5); EOS % 2.3 % (0.0-3.0); HEMATOCRIT 36.8 % (42.0-52.0); HEMOGLOBIN 12.2 g/dl (13.5-17.5); LYMPH # 1.5 10^3/uL (1.5-5.0); LYMPH % 17.9 % (24.0-44.0); MEAN CORPUSCULAR HEMOGLOBIN 31.1 pg (27.0-33.0); MEAN CORPUSCULAR HGB CONC 33.2 g/dl (32.0-36.5); MEAN CORPUSCULAR VOLUME 93.9 fl (80.0-96.0); MONO # 0.4 10^3/uL (0.0-0.8); NEUTROPHILS # 6.2 10^3/uL (1.5-8.5); PLATELET COUNT, AUTOMATED 368 10^3/uL (150-450); RED BLOOD COUNT 3.92 10^6/uL (4.30-6.10); WHITE BLOOD COUNT 8.4 10^3/uL (4.0-10.0)
[2021-04-06 06:45] LABS: CALCIUM LEVEL 8.1 MG/DL (8.8-10.2); CREATININE FOR GFR 2.04 MG/DL (0.70-1.30); GLOMERULAR FILTRATION RATE 35.5 (>49); MAGNESIUM LEVEL 1.9 MG/DL (1.8-2.4); POTASSIUM SERUM 3.3 MEQ/L (3.5-5.1)
[2021-04-06] MEDS: HumaLOG INSULIN (NovoLOG) PER UNIT SC SCH ×2 (07:29→11:46)
[2021-04-06] MEDS ORDERED: POTASSIUM CHLORIDE 10 MEQ SR TABLET PO ONE (08:30)
[2021-04-06] MEDS: LEVEMIR (INSULIN DETEMIR) 1 UNITS/0.01ML SC SCH (08:58)
[2021-04-06] MEDS: NS 1,000 ML IV SCH (08:58)
[2021-04-06 14:00] VITALS: BP 165/89
[2021-04-06] MEDS ORDERED: DOXYCYCLINE HYCLATE 100MG TABLET PO ONE (15:00)
[2021-04-06] MEDS ORDERED: DOXY100T PO (15:53)
[2021-04-06] MEDS ORDERED: ATOR1TAB21 PO (15:53)
[2021-04-06] MEDS ORDERED: AMOX875T PO (15:53)
--- NOTE | 2021-04-06 20:45 | DS.PDOC ---
Discharge Summary General Date of Admission Apr 01, 2021 at 12:20 Date of Discharge Tuesday, April 06, 2021 Primary Care Physician: DANIELLA SAINZ NP Attending Physician: MAI DUBON MD Specialist/Consultants Involve: ANIL JAVIER DPM Specialist/Consultants Involve Dr. Jude Stanford D.O., General Surgery Discharge Summary PROCEDURES PERFORMED DURING STAY: Bedside I&D on 04/02/21, Dr. Javier Right foot incision and drainage with removal of small metallic wire foreign body under MAC on 04/03/21, Dr. Javier ADMITTING DIAGNOSES: Right foot pain and swelling 2/2 medial metatarsal joint abscess and spreading infection secondary to foreign body infiltration IDDMT2 with peripheral neuropathy, poorly controlled Right lower leg ulcer History of hospital visits for multiple soft tissue infections DISCHARGE DIAGNOSES: Right foot pain and swelling 2/2 medial metatarsal joint abscess and spreading infection secondary to foreign body infiltration IDDMT2 with peripheral neuropathy, poorly controlled Right lower leg ulcer History of hospital visits for multiple soft tissue infections Acute kidney injury DLP COMPLICATIONS/CHIEF COMPLAINT: Cellulitis And Abscess Of Leg,Cellulitis Of R Lower extremity. HISTORY OF PRESENT ILLNESS: Sharath is a 60yo male w/ notable PMHx of poorly-controlled IDDMII w/ significant neuropathy and dlp presented to the emergency department on 04/01/21 with a chief complaint of right foot discomfort, redness, and swelling. The patient was accompanied by his son, Epifanio, who reports that he noticed increasing redness of the patient's right lower extremity, specifically around the right medial aspect of the great toe joint. The patient and his son initially noticed some fluctuance under the skin overlying the medial MTP joint on 03/30/21. They continue to monitor the swelling and observed increased amount of fluctuance and continued increasing redness which began to extend proximally up the right lower extremity. It was at this point that the son chose to bring the patient to the e mergency department. At the time of ED admission evaluation, patient denied any significant pain is reports severe bilateral lower extremity neuropathy. Patient also states that he lost feeling in his feet "a few years ago." Despite being on diabetes medications (NPH, glyburide, and metformin) and taking them, patient denies actually having diabetes. Patient does not use any assistance for ambulat ion. Despite falling in the past due to his severe neuropathy. 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 Prior to the onset of symptoms and 03/30, patient denies experiencing any traumatic event involving his right foot/known trauma. The patient asked he believes he may have been stung by a bee since he remembers being outside prior to 03/30 and seeing bees around his feet. 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 The patient has a known medical history of many prior wounds and abscesses that have grown MRSA, MSSA, Pseudomonas, and other bacterial species dating back to 2009 per [facility] records. 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 Grayson's cell phone number to call in emergencies is [phone]. HOSPITAL COURSE: Patient was initially started on ceftaroline for antimicrobial coverage. Zosyn was subsequently added to cover for pseudomonas in the setting of his poorly controlled diabetes and current right foot wound and history of prior wounds. Vancomycin was also started to in the setting of his known MRSA, history. Unfortunately, blood cultures were only obtained in the emergency department after vancomycin had been given. Nonetheless, they were subsequently ordered. Wound cultures were also ordered after vancomycin had been administered. The ER called the on-call general surgeon (Dr. Galicia) disease to evaluate the patient for surgical management. In anticipation for possible surgery. Patient was initially kept nothing by mouth. Patient's home glyburide and metformin were held and he was placed on insulin sliding scale. He was started on NPH 5 units subcutaneously twice a day with hypoglycemic protocol. He also had a consider carb diet. Unfortunately, throughout his 6 days here in the hospital before he left AGAINST MEDICAL ADVICE, patient's sugars are poorly controlled, and the NPH after day 1 was subsequently switched to long-acting Levemir twice a day. The Levemir was titrated up steadily as his sugars remained high and eventually got to 8 units twice a day. Dr. Galicia and evaluated the patient and felt that due to the proximity to the right first MTP joint, he would initially defer any surg ical intervention to podiatry. The hospitalist service subsequently called on- call special programs director (Dr. Javier) performed a bedside incision and drainage on 04/02/21, but due to the known metallic foreign body in the foot, decided to take the patient for a surgical intervention on 04/03/21 at which point a small metallic wire was removed. The surgery was done under monitored anesthesia care. In addition, on his penultimate hospital day (04/05/21) patient developed acute kidney injury with a rise in serum creatinine at 2.09. Nephrotoxic medications were avoided. Renal ultrasound was ordered as well as urine electrolytes and IV fluids were started. Unfortunately, the patient decided to leave AGAINST MEDICAL ADVICE on 04/06/21 while still receiving antibiotics and be monitored for improvement in his acute kidney injury. Of note, his antibiotics were switched to oral form. On 04/05/21. The patient acknowledged all the risks of leaving AGAINST MEDICAL ADVICE, which included further worsening of infection, sepsis, and/or . He still decided to leave AGAINST MEDICAL ADVICE. DISCHARGE MEDICATIONS: Please see below. ALLERGIES: Please see below. PHYSICAL EXAMINATION ON DISCHARGE: VITAL SIGNS: Please see below. General: Lying in bed, no acute distress, comfortable, awake and alert HEENT: NC, AT CVS: +S1S2 Lungs: Fair air entry b/l, -w/r/r Abdomen: Soft, ND, NT Extremities: Right foot with dressing in place LABORATORY DATA: Please see below. IMAGING: PROGNOSIS: Fair ACTIVITY: As tolerated DIET: Diabetic diet DISPOSITION: 07 Against Medical Advice. DISCHARGE INSTRUCTIONS & ITEMS TO FOLLOWUP ON ON OUTPATIENT: -Patient is to continue amoxicillin 875 mg twice a day for the next 7 days as well as 100 mg doxycycline twice a day for the next 7 days to complete 14 total days of antimicrobial coverage. A prescription for atorvastatin was also sent. -Patient is to follow with his primary care physician within the next 5 days and based on that visit to determine whether or not he needs to follow with podiatry for further wound care. -Should symptoms that necessitated presentation return and/or acutely worsen, patient is to return to ED. DISCHARGE CONDITION: Not medically stable when pt left AMA TIME SPENT ON DISCHARGE: 38 minutes. Vital Signs/I&Os Vital Signs Date Time Temp Pulse Resp B/P (MAP) Pulse Ox O2 Delivery O2 Flow Rate FiO2 04/06/21 14:00 98.6 56 16 165/89 (114) 95 Room Air I&O- Last 24 Hours up to 6 AM 04/06/21 06:00 Intake Total 800 ml Output Total 1400 ml Balance -600 ml Laboratory Data Labs 24H Laboratory Tests 2 04/06/21 05:55: Immature Granulocyte % (Auto) 1.1, Neutrophils (%) (Auto) 73.0H, Lymphocytes (%) (Auto) 17.9L, Monocytes (%) (Auto) 5.0, Eosinophils (%) (Auto) 2.3, Basophils (%) (Auto) 0.7, Neutrophils # (Auto) 6.2, Lymphocytes # (Auto) 1.5, Monocytes # (Auto) 0.4, Eosinophils # (Auto) 0.2, Basophils # (Auto) 0.1, Nucleated Red Blood Cells % (auto) 0.0, Anion Gap 10, Glomerular Filtration Rate 35.5L, Calcium Level 8.1L, Magnesium Level 1.9 04/06/21 11:45: Bedside Glucose (Misc Panel) 58L 04/06/21 12:48: Bedside Glucose (Misc Panel) 88 CBC/BMP Laboratory Tests 04/06/21 05:55 FSBS Laboratory Tests Test 04/06/21 11:45 04/06/21 12:48 Range/Units Bedside Glucose (Misc Panel) 58 88 80-115 MG/DL Microbiology Microbiology 04/03/21 Gram Stain - Final, Complete 04/03/21 Wound Culture - Final, Complete Staphylococcus Aureus Enterococcus Faecalis 04/03/21 Anaerobic Culture - Final, Complete 04/01/21 Gram Stain - Final, Complete 04/01/21 Wound Culture - Final, Complete Staphylococcus Aureus Enterococcus Faecalis 04/01/21 Blood Culture - Final, Complete NO GROWTH AFTER 5 DAYS 04/01/21 Blood Culture - Final, Complete NO GROWTH AFTER 5 DAYS Discharge Medications Scheduled Amoxicillin (Amoxicillin) 875 Mg Tablet, 875 MG PO BID Aspirin (Aspirin EC) 81 Mg Tablet.dr, 81 MG PO DAILY, (Reported) Atorvastatin Calcium (Atorvastatin Calcium) 20 Mg Tablet, 40 MG PO QHS Doxycycline Hyclate (Doxycycline Hyclate) 100 Mg Tablet, 100 MG PO BID Glyburide (Glyburide) 5 Mg Tablet, 5 MG PO DAILY, (Reported) Insulin NPH Human Isophane (Novolin N) 100 Unit/1 Ml Vial, 14 UNITS SQ DAILY, (Reported) TAKES WITH LUNCH Metformin HCl (Metformin HCl ER) 500 Mg Tab.er.24h, 500 MG PO QHS, (Reported) Allergies Coded Allergies: acetaminophen (Verified Adverse Reaction, Intermediate, nightmares, 05/23/19) SARA KAHN D.O. Apr 06, 2021 20:45
[2021-04-06] MEDS ORDERED: DOXYCYCLINE HYCLATE 100MG TABLET PO SCH (21:00)
[2021-04-06] MEDS ORDERED: AMOXICILLIN 875 MG TAB PO SCH (21:00)
--- NOTE | 2021-04-07 15:03 | RO ---
OPERATIVE NOTE DATE OF OPERATION: 04/03/2021 Addendum to #[id number] ADDENDUM: Note that wound debridement was performed in excisional fashion with #15 blade including nonviable subcutaneous tissue and joint capsule.
== END 2021-04-06 16:00 | disposition left against medical advice (07) | DRG 623 ==
LOC: M ED 08:04 → M ED INP 12:20 → ENRESERV 12:52 → M MS5PR 14:10
PROVIDERS: ADMIT Internal Medicine; ATTEND Internal Medicine
PROC: 0JBQ0ZZ Excision of Right Foot Subcutaneous Tissue and Fascia, Open Approach (ICD-10-PCS; principal; 2021-04-02)
PROC: 0YBM0ZZ Excision of Right Foot, Open Approach (ICD-10-PCS; 2021-04-03)
PROC: 0SBM0ZZ Excision of Right Metatarsal-Phalangeal Joint, Open Approach (ICD-10-PCS; 2021-04-03)
PROC: 0Y9M0ZZ Drainage of Right Foot, Open Approach (ICD-10-PCS; 2021-04-03)
DX: E11.621 Type 2 diabetes mellitus with foot ulcer (principal); L02.611 Cutaneous abscess of right foot; L97.919 Non-pressure chronic ulcer of unspecified part of right lower leg with unspecified severity; E11.51 Type 2 diabetes mellitus with diabetic peripheral angiopathy without gangrene; N17.9 Acute kidney failure, unspecified; Z79.82 Long term (current) use of aspirin; Z79.899 Other long term (current) drug therapy; Z88.8 Allergy status to other drugs, medicaments and biological substances; E78.5 Hyperlipidemia, unspecified; Z79.4 Long term (current) use of insulin; F32.9 Major depressive disorder, single episode, unspecified; B95.61 Methicillin susceptible Staphylococcus aureus infection as the cause of diseases classified elsewhere; Z91.19 Patient's noncompliance with other medical treatment and regimen; Z91.14 Patient's other noncompliance with medication regimen

== ENCOUNTER → 2021-04-23 | Outpatient (REF) | payer MEDICARE ==
[~2021-04-23] MED LIST changes: +AMOX875T PO; +ASPI-161 PO; +ATOR1TAB21 PO; +DOXY100T PO; +GLYB5TAB6 PO; +METF-838 PO; +NOVOINJ13 SQ
[2021-04-23 11:22] LABS: ALBUMIN 3.4 GM/DL (3.2-5.2); ALT/SGPT 14 U/L (12-78); BILIRUBIN,TOTAL 0.5 MG/DL (0.2-1.0); BLOOD UREA NITROGEN 12 MG/DL (7-18); CALCIUM LEVEL 8.4 MG/DL (8.8-10.2); CARBON DIOXIDE LEVEL 31 MEQ/L (21-32); CHLORIDE LEVEL 102 MEQ/L (98-107); CHOLESTEROL LEVEL 121 MG/DL (<200); CHOLESTEROL RISK RATIO 3.558 (<5); CREATININE FOR GFR 1.18 MG/DL (0.70-1.30); GLOMERULAR FILTRATION RATE > 60.0 (>49); GLUCOSE, FASTING 117 MG/DL (70-100); HDL CHOLESTEROL 34 MG/DL (>40); LDL CHOLESTEROL 73 MG/DL (<100); NON-HDL-C 87 MG/DL; POTASSIUM SERUM 4.1 MEQ/L (3.5-5.1); SODIUM LEVEL 139 MEQ/L (136-145); TOTAL PROTEIN 7.4 GM/DL (6.4-8.2); TRIGLYCERIDES LEVEL 68 MG/DL (<150)
[2021-04-23 11:38] LABS: HEMOGLOBIN A1c 9.9 %
== END ==
LOC: M PLALAB 08:44
PROVIDERS: ATTEND Nurse Practitioner Family
DX: E11.8 Type 2 diabetes mellitus with unspecified complications (principal); E78.2 Mixed hyperlipidemia

== ENCOUNTER → 2021-06-03 | Outpatient (REF) | payer MEDICARE, SELFPAY | LOC: M LAB REF 11:20 | PROVIDERS: ATTEND Surgery | DX: L97.515 Non-pressure chronic ulcer of other part of right foot with muscle involvement without evidence of necrosis (principal) ==

== ENCOUNTER → 2021-06-29 | Outpatient (CLI) | payer SELFPAY ==
[~2021-06-29] MED LIST changes: +VITA500T40 PO
[2021-06-29 17:54] LABS: BASO # 0.1 10^3/uL (0.0-0.2); BASO % 0.9 % (0.0-1.0); EOS # 0.3 10^3/uL (0.0-0.5); EOS % 3.7 % (0.0-3.0); HEMATOCRIT 34.9 % (42.0-52.0); HEMOGLOBIN 11.2 g/dl (13.5-17.5); LYMPH # 1.5 10^3/uL (1.5-5.0); LYMPH % 21.7 % (24.0-44.0); MEAN CORPUSCULAR HEMOGLOBIN 29.9 pg (27.0-33.0); MEAN CORPUSCULAR HGB CONC 32.1 g/dl (32.0-36.5); MEAN CORPUSCULAR VOLUME 93.1 fl (80.0-96.0); MONO # 0.5 10^3/uL (0.0-0.8); MONO % 6.6 % (2.0-8.0); NEUTROPHILS # 4.6 10^3/uL (1.5-8.5); NEUTROPHILS % 66.7 % (36.0-66.0); PLATELET COUNT, AUTOMATED 275 10^3/uL (150-450); RED BLOOD COUNT 3.75 10^6/uL (4.30-6.10)
[2021-06-29 18:09] LABS: BLOOD UREA NITROGEN 14 MG/DL (7-18); CALCIUM LEVEL 9.2 MG/DL (8.8-10.2); CARBON DIOXIDE LEVEL 28 MEQ/L (21-32); CHLORIDE LEVEL 103 MEQ/L (98-107); CREATININE FOR GFR 1.02 MG/DL (0.70-1.30); GLOMERULAR FILTRATION RATE > 60.0 (>49); GLUCOSE, FASTING 151 MG/DL (70-100); POTASSIUM SERUM 4.7 MEQ/L (3.5-5.1); SODIUM LEVEL 137 MEQ/L (136-145)
[2021-06-29 19:36] LABS: HEMOGLOBIN A1c 7.9 %
== END ==
LOC: M PLALAB 14:11
PROVIDERS: ATTEND Family Medicine
DX: Z01.818 Encounter for other preprocedural examination (principal); E11.8 Type 2 diabetes mellitus with unspecified complications

== ENCOUNTER → 2021-07-10 | Outpatient (CLI) | payer SELFPAY | LOC: M LABSMTC 09:09 | PROVIDERS: ATTEND Anesthesiology | DX: Z01.812 Encounter for preprocedural laboratory examination (principal); Z20.822 Contact with and (suspected) exposure to COVID-19 ==

== ENCOUNTER → 2021-07-10 | Outpatient (CLI) | payer SELFPAY ==
--- NOTE | 2021-07-11 00:35 | ECGEPIP ---
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 No remarkable changes Electronically Signed on 07-11-2021 0:35:00 EDT by Patrick Gamez
== END ==
LOC: M EKG 09:39
PROVIDERS: ATTEND Anesthesiology
DX: Z01.818 Encounter for other preprocedural examination (principal); E11.9 Type 2 diabetes mellitus without complications; E03.9 Hypothyroidism, unspecified

== ENCOUNTER 2021-07-15 09:55 | Day surgery (SDC) | payer SELFPAY ==
[~2021-07-15] VITALS: Ht 170.2 cm; Wt 86.4 kg
[~2021-07-15 09:55] MED LIST changes: +BUPIVACAINE HCL 0.5% 30 ML VIAL As Ordered ONE; +LIDOCAINE 1% MDV 20ML VIAL As Ordered ONE; +LIDOCAINE 1% MDV 20ML VIAL SQ PRN; +LR 1,000 ML IV ONE; +ceFAZolin SOD 1 GM in D5W MINI-BAG PLUS 50 ML IV SCH; +dexameTHASONE 4 MG/ML 1ML VIAL (J1100 PER 1MG) As Ordered ONE
[2021-07-15] MEDS ORDERED: KETOROLAC 60MG 2ML VIAL As Ordered ONE (09:56)
[2021-07-15] MEDS ORDERED: MIDAZOLAM INJ 2MG/2ML VIAL (J2250 PER 1MG) As Ordered ONE (09:56)
[2021-07-15] MEDS ORDERED: fentaNYL 100 MCG/2 ML INJECTION (J3010) As Ordered ONE (09:56)
[2021-07-15] MEDS ORDERED: ONDANSETRON 4MG/2ML VIAL As Ordered ONE (09:56)
[2021-07-15] MEDS ORDERED: propofoL 200 MG/20 ML VIAL As Ordered ONE (09:56)
[2021-07-15] MEDS ORDERED: LIDOCAINE 2% 100MG/5ML SDV (FOR ANES.) As Ordered ONE (09:56)
[2021-07-15] MEDS ORDERED: ceFAZolin SOD 1 GM in D5W MINI-BAG PLUS 50 ML IV SCH (11:15)
[2021-07-15 14:10] VITALS: BP 178/98
--- NOTE | 2021-07-15 14:37 | RO ---
OPERATIVE NOTE DATE OF OPERATION: 07/15/2021 PREOPERATIVE DIAGNOSIS: Right 1st metatarsal head osteomyelitis. POSTOPERATIVE DIAGNOSIS: Right 1st metatarsal head osteomyelitis. PROCEDURE: Right 1st metatarsal head excision. SURGEON: Ruddy Torres DPM ROAD CUTTER: None. ANESTHESIA: Monitored anesthesia care, preop injection of 18 mL of 1:1 mixture of 1% Lidocaine plain and 0.5% Marcaine plain. ESTIMATED BLOOD LOSS: Minimal. MATERIALS: 3-0 Vicryl, 3-0 nylon. INJECTABLES: None. SPECIMEN: Right 1st metatarsal head. CONDITION: Stable. INDICATIONS: Mr. Morrison is a 59-year-old diabetic male with nonhealing ulceration of his right foot. He had an infection. [facility] resolution of the wound. He presents today for surgical correction. The patient site and side were identified and marked in preoperative area. Consent was reviewed and obtained. Risks, complications and alternatives to the procedure were explained to the patient in detail and all questions were answered. DESCRIPTION OF PROCEDURE: The patient was brought to the operating room and placed on the stretcher in supine position. Monitored anesthesia care was delivered by the anesthesia team. Preop injection of 18 mL of 1:1 mixture of 1% Lidocaine plain and 0.5% Marcaine plain was injected in right foot. Right foot was prepped and draped in normal sterile fashion. Tourniquet was applied to the right ankle and inflated to 250 mmHg. Dorsal incision was made over 1st metatarsal head and carried through with #15 blade. Dissection was carried down to the metatarsophalangeal capsule. Linear capsulotomy was performed exposing the metatarsal head at the soft tissues attachments to the metatarsal head released with #15 blade and the plantar structures were released using McGlamry elevator. Following this sagittal saw was used to excise the metatarsal head; head was inspected, noted to be fragmented with soft bone consistent with osteomyelitis. It was sent for pathology. Remaining bone pieces and fragments were excised with rongeur. Site was irrigated with normal saline. Deep closure performed with 3-0 Vicryl, skin closure with 3-0 nylon. Sterile dressings were applied. Tourniquet was deflated. The patient was brought to PACU with vital signs stable, neurovascular status intact. He will be partial weightbearing and follow up in office in two days.
== END 2021-07-15 14:10 | disposition home or self-care (01) ==
LOC: M SDC 09:55
PROVIDERS: ATTEND Podiatrist Foot & Ankle Surgery
DX: M86.471 Chronic osteomyelitis with draining sinus, right ankle and foot (principal); E11.69 Type 2 diabetes mellitus with other specified complication; E03.9 Hypothyroidism, unspecified; E53.9 Vitamin B deficiency, unspecified; E11.40 Type 2 diabetes mellitus with diabetic neuropathy, unspecified; Z88.6 Allergy status to analgesic agent; Z79.899 Other long term (current) drug therapy; Z79.82 Long term (current) use of aspirin; Z79.4 Long term (current) use of insulin
CPT/HCPCS: 28111; 88304; 88311; 97116; 97161; J0690; J1885; J2250; J2405; J3010

== ENCOUNTER → 2021-08-20 | Outpatient (CLI) | payer SELFPAY ==
[~2021-08-20] MED LIST changes: -BUPIVACAINE HCL 0.5% 30 ML VIAL As Ordered ONE; -LIDOCAINE 1% MDV 20ML VIAL As Ordered ONE; -LIDOCAINE 1% MDV 20ML VIAL SQ PRN; -LR 1,000 ML IV ONE; -ceFAZolin SOD 1 GM in D5W MINI-BAG PLUS 50 ML IV SCH; -dexameTHASONE 4 MG/ML 1ML VIAL (J1100 PER 1MG) As Ordered ONE
[2021-08-20 10:58] LABS: ALBUMIN 3.6 GM/DL (3.2-5.2); ALT/SGPT 16 U/L (12-78); BILIRUBIN,TOTAL 0.5 MG/DL (0.2-1.0); BLOOD UREA NITROGEN 13 MG/DL (7-18); CALCIUM LEVEL 8.8 MG/DL (8.8-10.2); CARBON DIOXIDE LEVEL 31 MEQ/L (21-32); CHLORIDE LEVEL 102 MEQ/L (98-107); CREATININE FOR GFR 1.22 MG/DL (0.70-1.30); GLOMERULAR FILTRATION RATE > 60.0 (>49); GLUCOSE, FASTING 111 MG/DL (70-100); HEMOGLOBIN A1c 7.9 %; POTASSIUM SERUM 4.6 MEQ/L (3.5-5.1); SODIUM LEVEL 136 MEQ/L (136-145); TOTAL PROTEIN 7.7 GM/DL (6.4-8.2)
== END ==
LOC: M PLALAB 07:54
PROVIDERS: ATTEND Nurse Practitioner Family
DX: E11.621 Type 2 diabetes mellitus with foot ulcer (principal); L97.509 Non-pressure chronic ulcer of other part of unspecified foot with unspecified severity

== ENCOUNTER → 2021-12-30 | Outpatient (CLI) | payer SELFPAY ==
[2021-12-30 13:57] LABS: BASO # 0.1 10^3/uL (0.0-0.2); BASO % 0.8 % (0.0-1.0); EOS # 0.3 10^3/uL (0.0-0.5); EOS % 3.8 % (0.0-3.0); HEMATOCRIT 37.3 % (42.0-52.0); HEMOGLOBIN 12.8 g/dl (13.5-17.5); LYMPH # 1.9 10^3/uL (1.5-5.0); LYMPH % 25.2 % (24.0-44.0); MEAN CORPUSCULAR HEMOGLOBIN 31.4 pg (27.0-33.0); MEAN CORPUSCULAR HGB CONC 34.3 g/dl (32.0-36.5); MEAN CORPUSCULAR VOLUME 91.6 fl (80.0-96.0); MONO # 0.4 10^3/uL (0.0-0.8); MONO % 5.4 % (2.0-8.0); NEUTROPHILS # 4.9 10^3/uL (1.5-8.5); NEUTROPHILS % 64.4 % (36.0-66.0); PLATELET COUNT, AUTOMATED 233 10^3/uL (150-450); RED BLOOD COUNT 4.07 10^6/uL (4.30-6.10); WHITE BLOOD COUNT 7.6 10^3/uL (4.0-10.0)
[2021-12-30 15:45] LABS: ALBUMIN 3.9 GM/DL (3.2-5.2); ALT/SGPT 25 U/L (12-78); BILIRUBIN,TOTAL 0.4 MG/DL (0.2-1.0); BLOOD UREA NITROGEN 17 MG/DL (7-18); CALCIUM LEVEL 9.5 MG/DL (8.8-10.2); CARBON DIOXIDE LEVEL 31 MEQ/L (21-32); CHLORIDE LEVEL 101 MEQ/L (98-107); CHOLESTEROL LEVEL 144 MG/DL (<200); CHOLESTEROL RISK RATIO 3.512 (<5); CREATININE FOR GFR 1.11 MG/DL (0.70-1.30); GLOMERULAR FILTRATION RATE > 60.0 (>49); GLUCOSE, FASTING 173 MG/DL (70-100); HDL CHOLESTEROL 41 MG/DL (>40); LDL CHOLESTEROL 92 MG/DL (<100); NON-HDL-C 103 MG/DL; POTASSIUM SERUM 5.6 MEQ/L (3.5-5.1); SODIUM LEVEL 137 MEQ/L (136-145); TOTAL PROTEIN 7.3 GM/DL (6.4-8.2); TRIGLYCERIDES LEVEL 57 MG/DL (<150)
[2021-12-30 15:51] LABS: VITAMIN B12 LEVEL 405 PG/ML (247-911)
[2021-12-30 16:34] LABS: HEMOGLOBIN A1c 10.2 %
== END ==
LOC: M PLALAB 09:57
PROVIDERS: ATTEND Nurse Practitioner Family
DX: E11.8 Type 2 diabetes mellitus with unspecified complications (principal); E53.8 Deficiency of other specified B group vitamins; E78.2 Mixed hyperlipidemia

== ENCOUNTER 2022-05-15 08:30 | Inpatient (IN) | payer MEDICARE, SELFPAY ==
[~2022-05-15] VITALS: Ht 175.3 cm; Wt 96.5 kg
[2022-05-15] MEDS ORDERED: fentaNYL 100 MCG/2 ML INJECTION IV ONE (08:55)
[2022-05-15 09:51] LABS: BASO # 0.1 10^3/uL (0.0-0.2); BASO % 0.8 % (0.0-1.0); EOS # 0.3 10^3/uL (0.0-0.5); HEMATOCRIT 35.8 % (42.0-52.0); HEMOGLOBIN 12.4 g/dl (13.5-17.5); LYMPH # 1.4 10^3/uL (1.5-5.0); LYMPH % 21.3 % (24.0-44.0); MEAN CORPUSCULAR HGB CONC 34.6 g/dl (32.0-36.5); MEAN CORPUSCULAR VOLUME 92.5 fl (80.0-96.0); MONO # 0.3 10^3/uL (0.0-0.8); MONO % 4.7 % (2.0-8.0); NEUTROPHILS # 4.3 10^3/uL (1.5-8.5); NEUTROPHILS % 67.6 % (36.0-66.0); PLATELET COUNT, AUTOMATED 217 10^3/uL (150-450); RED BLOOD COUNT 3.87 10^6/uL (4.30-6.10); WHITE BLOOD COUNT 6.4 10^3/uL (4.0-10.0)
[2022-05-15] MEDS ORDERED: MORPHINE 2 MG/ML 1ML VIAL IV PRN ×2 (10:15→18:40)
[2022-05-15] MEDS ORDERED: DEXTROSE 50% 50 ML SYRINGE IV PRN (10:15)
[2022-05-15] MEDS ORDERED: NS 1,000 ML IV SCH (10:15)
[2022-05-15] MEDS ORDERED: MOM 30ML SUSPENSION UDC PO PRN (10:15)
[2022-05-15] MEDS ORDERED: GLUCOSE 4GM CHEW TABLET PO PRN (10:15)
[2022-05-15] MEDS ORDERED: GLUCAGON INJ 1MG VIAL SC PRN (10:15)
[2022-05-15 10:37] LABS: BLOOD UREA NITROGEN 19 MG/DL (7-18); CALCIUM LEVEL 9.2 MG/DL (8.8-10.2); CARBON DIOXIDE LEVEL 26 MEQ/L (21-32); CHLORIDE LEVEL 103 MEQ/L (98-107); CREATININE FOR GFR 1.08 MG/DL (0.70-1.30); GLOMERULAR FILTRATION RATE > 60.0 (>49); GLUCOSE, FASTING 235 MG/DL (70-100); MAGNESIUM LEVEL 1.7 MG/DL (1.8-2.4); PHOSPHORUS LEVEL 3.4 MG/DL (2.5-4.9); POTASSIUM SERUM 4.3 MEQ/L (3.5-5.1); SODIUM LEVEL 136 MEQ/L (136-145)
[2022-05-15 10:40] LABS: INR 0.96; PARTIAL THROMBOPLASTIN TIME 27.9 SECONDS (25.9-37.0); PROTHROMBIN TIME 13.2 SECONDS (12.7-14.5)
[2022-05-15] MEDS ORDERED: MAG SULF 1GM/100ML (MAG RUN) 1 GM in IV 1 EA IV ONE (12:00)
[2022-05-15] MEDS: INSULIN LISPRO (NovoLOG) PER UNIT SC SCH ×2 (12:39→19:56)
[2022-05-15] MEDS ORDERED: ONDANSETRON 4MG 2ML VIAL IV ONE (12:45)
[2022-05-15 14:01] LABS: RSV AMPLIFICATION NEGATIVE (NEGATIVE)
[2022-05-15] MEDS ORDERED: ASPI81TA26 PO (14:14)
[2022-05-15] MEDS ORDERED: HOME MED LIST COMPLETE! XX SCH (14:15)
[2022-05-15] MEDS: ENOXAPARIN 40MG/0.4ML SYRINGE (J1650 PER 10MG) SC SCH (14:40)
[2022-05-15] MEDS ORDERED: propofoL 500 MG/50 ML VIAL As Ordered ONE (15:19)
[2022-05-15] MEDS ORDERED: MIDAZOLAM INJ 2MG/2ML VIAL (J2250 PER 1MG) As Ordered ONE (15:19)
[2022-05-15] MEDS ORDERED: dexameTHASONE 4 MG/ML 1ML VIAL (J1100 PER 1MG) As Ordered ONE (15:19)
[2022-05-15] MEDS ORDERED: ONDANSETRON 4MG 2ML VIAL As Ordered ONE (15:19)
[2022-05-15] MEDS ORDERED: TRANEXAMIC ACID 100 MG/ML 10ML VIAL As Ordered ONE (15:29)
[2022-05-15] MEDS ORDERED: BUPIVACAINE/EPIN 0.5% 30 ML VIAL As Ordered ONE (15:29)
[2022-05-15] MEDS ORDERED: ceFAZolin 2 GM/D5W 50 ML IV BAG (J0690 PER 500MG) As Ordered ONE (16:41)
[2022-05-15] MEDS ORDERED: ePHEDrine SULFATE 25 MG/5 ML(5MG/ML) SYRINGE As Ordered ONE (16:59)
[2022-05-15] MEDS ORDERED: PHENYLephrine 500MCG 5ML (100MCG/ML) SYRINGE As Ordered ONE (17:23)
[2022-05-15] MEDS ORDERED: KETAMINE HCL 200 MG/20 ML VIAL As Ordered ONE (18:06)
[2022-05-15] MEDS ORDERED: INSULIN LISPRO (NovoLOG) PER UNIT SC PRN (18:40)
[2022-05-15] MEDS ORDERED: LR 1,000 ML IV SCH (18:40)
[2022-05-15] MEDS ORDERED: oxyCODONE 5MG TAB PO PRN ×3 (18:40→20:30)
[2022-05-15] MEDS ORDERED: fentaNYL 100 MCG/2 ML INJECTION IV PRN (18:40)
[2022-05-15] MEDS ORDERED: ONDANSETRON 4MG 2ML VIAL IV PRN ×2 (18:40→19:45)
[2022-05-15 19:34] VITALS: BP 132/79
[2022-05-15] MEDS: LR 1,000 ML IV SCH (19:45)
[2022-05-15 20:00] VITALS: BP 123/66
[2022-05-15] MEDS ORDERED: SENNA 8.6 MG TAB (SENOKOT) PO PRN (20:35)
[2022-05-15 21:00] VITALS: BP 117/60
[2022-05-15] MEDS: DOCUSATE SODIUM 100MG CAPSULE PO SCH (21:00)
[2022-05-15] MEDS: NAPROXEN 250 MG TAB PO SCH (21:00)
[2022-05-15 22:00] VITALS: BP 113/63
[2022-05-15 23:00] VITALS: BP 116/75
[2022-05-16] VITALS: BP 131/61
[2022-05-16] MEDS: NAPROXEN 250 MG TAB PO SCH ×2 (00:05→09:23)
[2022-05-16] MEDS: INSULIN LISPRO (NovoLOG) PER UNIT SC SCH ×5 (00:06→20:37)
[2022-05-16] MEDS: ceFAZolin SOD 2 GM in IV 1 EA IV SCH ×2 (00:06→09:24)
[2022-05-16] MEDS: LR 1,000 ML IV SCH (01:16)
[2022-05-16 03:53] VITALS: BP 141/63
[2022-05-16] MEDS: traMADol 50 MG TAB PO PRN ×2 (04:30→15:44)
[2022-05-16 05:23] LABS: HEMATOCRIT 29.8 % (42.0-52.0); HEMOGLOBIN 10.3 g/dl (13.5-17.5); MEAN CORPUSCULAR HEMOGLOBIN 32.5 pg (27.0-33.0); MEAN CORPUSCULAR HGB CONC 34.6 g/dl (32.0-36.5); PLATELET COUNT, AUTOMATED 194 10^3/uL (150-450); RED BLOOD COUNT 3.17 10^6/uL (4.30-6.10); WHITE BLOOD COUNT 12.5 10^3/uL (4.0-10.0)
[2022-05-16 05:42] LABS: CALCIUM LEVEL 8.1 MG/DL (8.8-10.2); CREATININE FOR GFR 1.29 MG/DL (0.70-1.30); GLOMERULAR FILTRATION RATE 59.9 (>49); POTASSIUM SERUM 4.2 MEQ/L (3.5-5.1)
[2022-05-16 09:00] VITALS: BP 123/64
[2022-05-16] MEDS: DOCUSATE SODIUM 100MG CAPSULE PO SCH ×2 (09:00→20:39)
[2022-05-16] MEDS ORDERED: ASPIRIN 81MG ENTERIC TABLET PO SCH (09:00)
[2022-05-16] MEDS: ASCORBIC ACID 500 MG TAB PO SCH (09:22)
[2022-05-16] MEDS: FERROUS SULFATE 325MG TAB PO SCH (09:22)
[2022-05-16] MEDS: CYANOCOBALAMIN 500 MCG TAB PO SCH (09:23)
[2022-05-16] MEDS: ENOXAPARIN 40MG/0.4ML SYRINGE (J1650 PER 10MG) SC SCH (09:24)
[2022-05-16 15:39] VITALS: BP 147/60
[2022-05-16 20:00] VITALS: BP 141/68
[2022-05-17 04:00] VITALS: BP 154/88
[2022-05-17 06:35] LABS: BASO % 0.3 % (0.0-1.0); EOS # 0.3 10^3/uL (0.0-0.5); EOS % 2.9 % (0.0-3.0); HEMATOCRIT 27.7 % (42.0-52.0); HEMOGLOBIN 9.4 g/dl (13.5-17.5); LYMPH # 1.2 10^3/uL (1.5-5.0); LYMPH % 13.7 % (24.0-44.0); MEAN CORPUSCULAR HGB CONC 33.9 g/dl (32.0-36.5); MEAN CORPUSCULAR VOLUME 94.2 fl (80.0-96.0); MONO # 0.7 10^3/uL (0.0-0.8); MONO % 7.5 % (2.0-8.0); NEUTROPHILS # 6.5 10^3/uL (1.5-8.5); PLATELET COUNT, AUTOMATED 173 10^3/uL (150-450); RED BLOOD COUNT 2.94 10^6/uL (4.30-6.10); WHITE BLOOD COUNT 8.6 10^3/uL (4.0-10.0)
[2022-05-17 07:09] LABS: BLOOD UREA NITROGEN 21 MG/DL (7-18); CARBON DIOXIDE LEVEL 28 MEQ/L (21-32); CHLORIDE LEVEL 104 MEQ/L (98-107); CREATININE FOR GFR 1.13 MG/DL (0.70-1.30); FREE T4 1.21 NG/DL (0.76-1.46); GLOMERULAR FILTRATION RATE > 60.0 (>49); GLUCOSE, FASTING 334 MG/DL (70-100); MAGNESIUM LEVEL 1.8 MG/DL (1.8-2.4); POTASSIUM SERUM 4.5 MEQ/L (3.5-5.1); SODIUM LEVEL 136 MEQ/L (136-145)
[2022-05-17 08:00] VITALS: BP 160/80
[2022-05-17] MEDS: INSULIN LISPRO (NovoLOG) PER UNIT SC SCH ×4 (08:06→20:09)
[2022-05-17] MEDS: DOCUSATE SODIUM 100MG CAPSULE PO SCH ×2 (08:06→20:08)
[2022-05-17] MEDS: ASPIRIN 81MG ENTERIC TABLET PO SCH (08:06)
[2022-05-17] MEDS: ASCORBIC ACID 500 MG TAB PO SCH (08:06)
[2022-05-17] MEDS: ENOXAPARIN 40MG/0.4ML SYRINGE (J1650 PER 10MG) SC SCH (08:06)
[2022-05-17] MEDS: FERROUS SULFATE 325MG TAB PO SCH (08:06)
[2022-05-17] MEDS: CYANOCOBALAMIN 500 MCG TAB PO SCH (08:07)
[2022-05-17] MEDS: traMADol 50 MG TAB PO PRN ×2 (09:00→16:07)
[2022-05-17 12:00] VITALS: BP 156/72
[2022-05-17] MEDS: amLODIPine 5 MG TAB PO SCH (12:02)
[2022-05-17 20:00] VITALS: BP 142/71
[2022-05-18 03:50] VITALS: BP 152/70
[2022-05-18 06:24] LABS: BASO % 0.3 % (0.0-1.0); EOS # 0.2 10^3/uL (0.0-0.5); EOS % 1.7 % (0.0-3.0); HEMATOCRIT 25.8 % (42.0-52.0); HEMATOCRIT 26.4 % (42.0-52.0); HEMOGLOBIN 9.1 g/dl (13.5-17.5); LYMPH # 1.2 10^3/uL (1.5-5.0); LYMPH % 14.3 % (24.0-44.0); MEAN CORPUSCULAR HEMOGLOBIN 32.3 pg (27.0-33.0); MEAN CORPUSCULAR HEMOGLOBIN 32.7 pg (27.0-33.0); MEAN CORPUSCULAR HGB CONC 34.5 g/dl (32.0-36.5); MEAN CORPUSCULAR HGB CONC 34.9 g/dl (32.0-36.5); MEAN CORPUSCULAR VOLUME 93.6 fl (80.0-96.0); MEAN CORPUSCULAR VOLUME 93.8 fl (80.0-96.0); MONO # 0.6 10^3/uL (0.0-0.8); MONO % 7.1 % (2.0-8.0); NEUTROPHILS # 6.6 10^3/uL (1.5-8.5); PLATELET COUNT, AUTOMATED 183 10^3/uL (150-450); PLATELET COUNT, AUTOMATED 187 10^3/uL (150-450); RED BLOOD COUNT 2.75 10^6/uL (4.30-6.10); RED BLOOD COUNT 2.82 10^6/uL (4.30-6.10); WHITE BLOOD COUNT 8.5 10^3/uL (4.0-10.0); WHITE BLOOD COUNT 8.7 10^3/uL (4.0-10.0)
[2022-05-18 06:48] LABS: BLOOD UREA NITROGEN 19 MG/DL (7-18); CALCIUM LEVEL 8.2 MG/DL (8.8-10.2); CARBON DIOXIDE LEVEL 22 MEQ/L (21-32); CHLORIDE LEVEL 106 MEQ/L (98-107); CREATININE FOR GFR 0.93 MG/DL (0.70-1.30); GLOMERULAR FILTRATION RATE > 60.0 (>49); GLUCOSE, FASTING 259 MG/DL (70-100); MAGNESIUM LEVEL 1.8 MG/DL (1.8-2.4); POTASSIUM SERUM 4.3 MEQ/L (3.5-5.1); SODIUM LEVEL 137 MEQ/L (136-145)
[2022-05-18] MEDS: DOCUSATE SODIUM 100MG CAPSULE PO SCH ×2 (07:56→20:44)
[2022-05-18] MEDS: amLODIPine 5 MG TAB PO SCH ×2 (07:56→20:45)
[2022-05-18] MEDS: FERROUS SULFATE 325MG TAB PO SCH (07:57)
[2022-05-18] MEDS: ASPIRIN 81MG ENTERIC TABLET PO SCH (07:57)
[2022-05-18] MEDS: CYANOCOBALAMIN 500 MCG TAB PO SCH (07:57)
[2022-05-18] MEDS: INSULIN LISPRO (NovoLOG) PER UNIT SC SCH ×4 (07:57→20:48)
[2022-05-18] MEDS: ENOXAPARIN 40MG/0.4ML SYRINGE (J1650 PER 10MG) SC SCH (07:58)
[2022-05-18] MEDS: ASCORBIC ACID 500 MG TAB PO SCH (08:00)
[2022-05-18 08:26] VITALS: BP 177/73
[2022-05-18] MEDS: traMADol 50 MG TAB PO PRN ×2 (11:21→15:32)
[2022-05-18 16:10] VITALS: BP 136/69
[2022-05-18 19:45] VITALS: BP 140/63
[2022-05-18 22:05] VITALS: BP 147/80
[2022-05-19 04:42] VITALS: BP 140/66
[2022-05-19 06:32] LABS: BASO % 0.5 % (0.0-1.0); EOS # 0.3 10^3/uL (0.0-0.5); EOS % 3.5 % (0.0-3.0); HEMATOCRIT 25.8 % (42.0-52.0); LYMPH # 1.5 10^3/uL (1.5-5.0); LYMPH % 19.7 % (24.0-44.0); MEAN CORPUSCULAR HEMOGLOBIN 32.6 pg (27.0-33.0); MEAN CORPUSCULAR HGB CONC 34.9 g/dl (32.0-36.5); MEAN CORPUSCULAR VOLUME 93.5 fl (80.0-96.0); MONO # 0.6 10^3/uL (0.0-0.8); MONO % 7.8 % (2.0-8.0); NEUTROPHILS % 67.4 % (36.0-66.0); PLATELET COUNT, AUTOMATED 227 10^3/uL (150-450); RED BLOOD COUNT 2.76 10^6/uL (4.30-6.10); WHITE BLOOD COUNT 7.4 10^3/uL (4.0-10.0)
[2022-05-19 06:56] LABS: BLOOD UREA NITROGEN 21 MG/DL (7-18); CALCIUM LEVEL 8.2 MG/DL (8.8-10.2); CARBON DIOXIDE LEVEL 26 MEQ/L (21-32); CHLORIDE LEVEL 104 MEQ/L (98-107); CREATININE FOR GFR 0.99 MG/DL (0.70-1.30); GLOMERULAR FILTRATION RATE > 60.0 (>49); GLUCOSE, FASTING 310 MG/DL (70-100); MAGNESIUM LEVEL 1.9 MG/DL (1.8-2.4); POTASSIUM SERUM 4.5 MEQ/L (3.5-5.1); SODIUM LEVEL 137 MEQ/L (136-145)
[2022-05-19] MEDS: traMADol 50 MG TAB PO PRN ×2 (07:04→14:06)
[2022-05-19] MEDS: ASCORBIC ACID 500 MG TAB PO SCH (08:44)
[2022-05-19] MEDS: ENOXAPARIN 40MG/0.4ML SYRINGE (J1650 PER 10MG) SC SCH (08:44)
[2022-05-19] MEDS: FERROUS SULFATE 325MG TAB PO SCH (08:44)
[2022-05-19] MEDS: INSULIN LISPRO (NovoLOG) PER UNIT SC SCH ×4 (08:44→21:46)
[2022-05-19] MEDS: ASPIRIN 81MG ENTERIC TABLET PO SCH (08:44)
[2022-05-19] MEDS: CYANOCOBALAMIN 500 MCG TAB PO SCH (08:45)
[2022-05-19] MEDS: amLODIPine 5 MG TAB PO SCH ×2 (08:45→21:51)
[2022-05-19] MEDS: DOCUSATE SODIUM 100MG CAPSULE PO SCH ×2 (08:45→21:00)
[2022-05-19 12:00] VITALS: BP 147/70
[2022-05-19 20:00] VITALS: BP 167/81
[2022-05-19 21:51] VITALS: BP 142/76
[2022-05-20 04:00] VITALS: BP 162/78
[2022-05-20 07:56] LABS: BASO # 0.1 10^3/uL (0.0-0.2); BASO % 0.6 % (0.0-1.0); EOS # 0.4 10^3/uL (0.0-0.5); EOS % 4.7 % (0.0-3.0); HEMATOCRIT 28.1 % (42.0-52.0); HEMOGLOBIN 9.7 g/dl (13.5-17.5); LYMPH # 1.2 10^3/uL (1.5-5.0); MEAN CORPUSCULAR HEMOGLOBIN 32.3 pg (27.0-33.0); MEAN CORPUSCULAR HGB CONC 34.5 g/dl (32.0-36.5); MEAN CORPUSCULAR VOLUME 93.7 fl (80.0-96.0); MONO # 0.5 10^3/uL (0.0-0.8); MONO % 6.5 % (2.0-8.0); NEUTROPHILS # 5.6 10^3/uL (1.5-8.5); NEUTROPHILS % 72.6 % (36.0-66.0); PLATELET COUNT, AUTOMATED 265 10^3/uL (150-450); WHITE BLOOD COUNT 7.7 10^3/uL (4.0-10.0)
[2022-05-20 08:23] LABS: BLOOD UREA NITROGEN 17 MG/DL (7-18); CALCIUM LEVEL 8.2 MG/DL (8.8-10.2); CARBON DIOXIDE LEVEL 25 MEQ/L (21-32); CHLORIDE LEVEL 101 MEQ/L (98-107); CREATININE FOR GFR 0.96 MG/DL (0.70-1.30); GLOMERULAR FILTRATION RATE > 60.0 (>49); GLUCOSE, FASTING 333 MG/DL (70-100); MAGNESIUM LEVEL 1.8 MG/DL (1.8-2.4); POTASSIUM SERUM 4.4 MEQ/L (3.5-5.1); SODIUM LEVEL 135 MEQ/L (136-145)
[2022-05-20] MEDS: FERROUS SULFATE 325MG TAB PO SCH (08:51)
[2022-05-20] MEDS: ENOXAPARIN 40MG/0.4ML SYRINGE (J1650 PER 10MG) SC SCH (08:51)
[2022-05-20] MEDS: ASPIRIN 81MG ENTERIC TABLET PO SCH (08:51)
[2022-05-20] MEDS: CYANOCOBALAMIN 500 MCG TAB PO SCH (08:52)
[2022-05-20] MEDS: ASCORBIC ACID 500 MG TAB PO SCH (08:52)
[2022-05-20] MEDS: amLODIPine 5 MG TAB PO SCH ×2 (08:52→22:42)
[2022-05-20] MEDS: traMADol 50 MG TAB PO PRN ×3 (08:52→19:11)
[2022-05-20] MEDS: INSULIN LISPRO (NovoLOG) PER UNIT SC SCH ×4 (08:53→22:43)
[2022-05-20] MEDS: DOCUSATE SODIUM 100MG CAPSULE PO SCH ×2 (08:54→22:41)
[2022-05-20 14:00] VITALS: BP 148/74
[2022-05-20 21:54] VITALS: BP 140/70
[2022-05-20] MEDS: LEVEMIR (INSULIN DETEMIR) 1 UNITS/0.01ML SC SCH (22:44)
[2022-05-21] MEDS: traMADol 50 MG TAB PO PRN ×4 (01:32→17:18)
[2022-05-21 06:38] VITALS: BP 146/73
[2022-05-21 06:48] LABS: BASO % 0.6 % (0.0-1.0); EOS # 0.4 10^3/uL (0.0-0.5); EOS % 5.3 % (0.0-3.0); HEMATOCRIT 27.4 % (42.0-52.0); HEMOGLOBIN 9.2 g/dl (13.5-17.5); LYMPH # 1.6 10^3/uL (1.5-5.0); MEAN CORPUSCULAR HEMOGLOBIN 31.4 pg (27.0-33.0); MEAN CORPUSCULAR HGB CONC 33.6 g/dl (32.0-36.5); MEAN CORPUSCULAR VOLUME 93.5 fl (80.0-96.0); MONO # 0.5 10^3/uL (0.0-0.8); MONO % 7.4 % (2.0-8.0); NEUTROPHILS # 4.2 10^3/uL (1.5-8.5); PLATELET COUNT, AUTOMATED 278 10^3/uL (150-450); RED BLOOD COUNT 2.93 10^6/uL (4.30-6.10); WHITE BLOOD COUNT 6.7 10^3/uL (4.0-10.0)
[2022-05-21 07:18] LABS: BLOOD UREA NITROGEN 16 MG/DL (7-18); CALCIUM LEVEL 8.4 MG/DL (8.8-10.2); CARBON DIOXIDE LEVEL 31 MEQ/L (21-32); CHLORIDE LEVEL 100 MEQ/L (98-107); CREATININE FOR GFR 0.93 MG/DL (0.70-1.30); GLOMERULAR FILTRATION RATE > 60.0 (>49); GLUCOSE, FASTING 267 MG/DL (70-100); MAGNESIUM LEVEL 1.9 MG/DL (1.8-2.4); POTASSIUM SERUM 4.4 MEQ/L (3.5-5.1); SODIUM LEVEL 135 MEQ/L (136-145)
[2022-05-21] MEDS: INSULIN LISPRO (NovoLOG) PER UNIT SC SCH ×4 (08:01→20:19)
[2022-05-21] MEDS: ASPIRIN 81MG ENTERIC TABLET PO SCH (08:01)
[2022-05-21] MEDS: DOCUSATE SODIUM 100MG CAPSULE PO SCH ×2 (08:01→20:49)
[2022-05-21] MEDS: ASCORBIC ACID 500 MG TAB PO SCH (08:02)
[2022-05-21] MEDS: FERROUS SULFATE 325MG TAB PO SCH (08:02)
[2022-05-21] MEDS: ENOXAPARIN 40MG/0.4ML SYRINGE (J1650 PER 10MG) SC SCH (08:02)
[2022-05-21] MEDS: amLODIPine 5 MG TAB PO SCH ×2 (08:02→20:49)
[2022-05-21] MEDS: CYANOCOBALAMIN 500 MCG TAB PO SCH (08:02)
[2022-05-21 14:00] VITALS: BP 143/65
[2022-05-21] MEDS: LEVEMIR (INSULIN DETEMIR) 1 UNITS/0.01ML SC SCH (20:50)
[2022-05-22] MEDS: traMADol 50 MG TAB PO PRN ×2 (04:35→15:21)
[2022-05-22 05:54] LABS: BASO % 0.6 % (0.0-1.0); EOS # 0.4 10^3/uL (0.0-0.5); EOS % 6.2 % (0.0-3.0); HEMATOCRIT 25.5 % (42.0-52.0); HEMOGLOBIN 8.6 g/dl (13.5-17.5); LYMPH # 1.5 10^3/uL (1.5-5.0); LYMPH % 21.5 % (24.0-44.0); MEAN CORPUSCULAR HEMOGLOBIN 31.5 pg (27.0-33.0); MEAN CORPUSCULAR HGB CONC 33.7 g/dl (32.0-36.5); MEAN CORPUSCULAR VOLUME 93.4 fl (80.0-96.0); MONO # 0.5 10^3/uL (0.0-0.8); MONO % 7.4 % (2.0-8.0); NEUTROPHILS # 4.5 10^3/uL (1.5-8.5); PLATELET COUNT, AUTOMATED 279 10^3/uL (150-450); RED BLOOD COUNT 2.73 10^6/uL (4.30-6.10); WHITE BLOOD COUNT 7.1 10^3/uL (4.0-10.0)
[2022-05-22 06:00] VITALS: BP 140/67
[2022-05-22 06:21] LABS: BLOOD UREA NITROGEN 16 MG/DL (7-18); CALCIUM LEVEL 8.8 MG/DL (8.8-10.2); CARBON DIOXIDE LEVEL 29 MEQ/L (21-32); CHLORIDE LEVEL 102 MEQ/L (98-107); CREATININE FOR GFR 0.98 MG/DL (0.70-1.30); GLOMERULAR FILTRATION RATE > 60.0 (>49); GLUCOSE, FASTING 268 MG/DL (70-100); MAGNESIUM LEVEL 1.5 MG/DL (1.8-2.4); SODIUM LEVEL 136 MEQ/L (136-145)
[2022-05-22 08:12] VITALS: BP 161/77
[2022-05-22] MEDS: ENOXAPARIN 40MG/0.4ML SYRINGE (J1650 PER 10MG) SC SCH (08:12)
[2022-05-22] MEDS: CYANOCOBALAMIN 500 MCG TAB PO SCH (08:12)
[2022-05-22] MEDS: ASPIRIN 81MG ENTERIC TABLET PO SCH (08:12)
[2022-05-22] MEDS: FERROUS SULFATE 325MG TAB PO SCH (08:12)
[2022-05-22] MEDS: amLODIPine 5 MG TAB PO SCH (08:12)
[2022-05-22] MEDS: ASCORBIC ACID 500 MG TAB PO SCH (08:12)
[2022-05-22] MEDS: DOCUSATE SODIUM 100MG CAPSULE PO SCH (08:13)
[2022-05-22] MEDS: INSULIN LISPRO (NovoLOG) PER UNIT SC SCH ×3 (08:13→16:48)
[2022-05-22] MEDS ORDERED: AMLO1TAB24 PO (10:53)
[2022-05-22] MEDS ORDERED: TRAM50TA2 PO (10:53)
== END 2022-05-22 17:02 | disposition home or self-care (01) | DRG 482 ==
LOC: EDBD 08:30 → M ED 08:30 → M ED INP 11:57 → M PCU 19:32 → M 4MAIN 05-18 22:05
PROVIDERS: ADMIT Internal Medicine; ATTEND Family Medicine
PROC: 0QS706Z Reposition Left Upper Femur with Intramedullary Internal Fixation Device, Open Approach (ICD-10-PCS; principal; 2022-05-15 11:45)
DX: S72.142A Displaced intertrochanteric fracture of left femur, initial encounter for closed fracture (principal); E11.42 Type 2 diabetes mellitus with diabetic polyneuropathy; E03.9 Hypothyroidism, unspecified; E53.8 Deficiency of other specified B group vitamins; E78.5 Hyperlipidemia, unspecified; I11.9 Hypertensive heart disease without heart failure; Z79.4 Long term (current) use of insulin; K44.9 Diaphragmatic hernia without obstruction or gangrene; W18.09XA Striking against other object with subsequent fall, initial encounter; Y92.009 Unspecified place in unspecified non-institutional (private) residence as the place of occurrence of the external cause; E83.42 Hypomagnesemia; Z79.899 Other long term (current) drug therapy; Z79.82 Long term (current) use of aspirin; Z88.6 Allergy status to analgesic agent

== ENCOUNTER → 2022-05-28 | Outpatient (CLI) | payer MEDICARE, SELFPAY ==
[~2022-05-28] MED LIST changes: +AMLO1TAB24 PO; +ASPI81TA26 PO; +TRAM50TA2 PO
== END ==
LOC: M SOG 07:57
PROVIDERS: ATTEND Orthopaedic Surgery Adult Reconstructive Orthopaedic Surgery
DX: M25.552 Pain in left hip (principal)

== ENCOUNTER → 2022-06-25 | Outpatient (CLI) | payer MEDICARE | LOC: M SOG 07:59 | PROVIDERS: ATTEND Orthopaedic Surgery Adult Reconstructive Orthopaedic Surgery | DX: S72.142D Displaced intertrochanteric fracture of left femur, subsequent encounter for closed fracture with routine healing (principal) ==

== ENCOUNTER → 2022-08-18 | Outpatient (CLI) | payer SELFPAY ==
[2022-08-18 10:30] LABS: BASO # 0.1 10^3/uL (0.0-0.2); BASO % 0.7 % (0.0-1.0); EOS # 0.4 10^3/uL (0.0-0.5); EOS % 4.3 % (0.0-3.0); HEMATOCRIT 39.8 % (42.0-52.0); HEMOGLOBIN 12.9 g/dl (13.5-17.5); LYMPH # 1.7 10^3/uL (1.5-5.0); LYMPH % 19.5 % (24.0-44.0); MEAN CORPUSCULAR HEMOGLOBIN 30.6 pg (27.0-33.0); MEAN CORPUSCULAR HGB CONC 32.4 g/dl (32.0-36.5); MEAN CORPUSCULAR VOLUME 94.3 fl (80.0-96.0); MONO # 0.4 10^3/uL (0.0-0.8); MONO % 4.5 % (2.0-8.0); NEUTROPHILS # 6.1 10^3/uL (1.5-8.5); NEUTROPHILS % 70.8 % (36.0-66.0); PLATELET COUNT, AUTOMATED 273 10^3/uL (150-450); RED BLOOD COUNT 4.22 10^6/uL (4.30-6.10); WHITE BLOOD COUNT 8.6 10^3/uL (4.0-10.0)
[2022-08-18 10:54] LABS: HEMOGLOBIN A1c 9.3 %
[2022-08-18 11:05] LABS: ALBUMIN 3.8 GM/DL (3.2-5.2); ALT/SGPT 15 U/L (12-78); BILIRUBIN,TOTAL 0.4 MG/DL (0.2-1.0); BLOOD UREA NITROGEN 17 MG/DL (7-18); CALCIUM LEVEL 8.9 MG/DL (8.8-10.2); CARBON DIOXIDE LEVEL 29 MEQ/L (21-32); CHLORIDE LEVEL 102 MEQ/L (98-107); CHOLESTEROL LEVEL 129 MG/DL (<200); CHOLESTEROL RISK RATIO 3.307 (<5); CREATININE FOR GFR 1.16 MG/DL (0.70-1.30); GLOMERULAR FILTRATION RATE > 60.0 (>49); GLUCOSE, FASTING 122 MG/DL (70-100); HDL CHOLESTEROL 39 MG/DL (>40); LDL CHOLESTEROL 78 MG/DL (<100); NON-HDL-C 90 MG/DL; POTASSIUM SERUM 4.6 MEQ/L (3.5-5.1); SODIUM LEVEL 136 MEQ/L (136-145); TOTAL PROTEIN 7.2 GM/DL (6.4-8.2); TRIGLYCERIDES LEVEL 62 MG/DL (<150)
[2022-08-18 11:31] LABS: VITAMIN B12 LEVEL 435 PG/ML (247-911)
== END ==
LOC: M PLALAB 07:48
PROVIDERS: ATTEND Nurse Practitioner Family
DX: E11.8 Type 2 diabetes mellitus with unspecified complications (principal); E78.2 Mixed hyperlipidemia; E53.8 Deficiency of other specified B group vitamins

== ENCOUNTER → 2022-08-25 | Outpatient (CLI) | payer SELFPAY, MEDICARE | LOC: M SOG 08:01 | PROVIDERS: ATTEND Orthopaedic Surgery Adult Reconstructive Orthopaedic Surgery | DX: S72.142D Displaced intertrochanteric fracture of left femur, subsequent encounter for closed fracture with routine healing (principal) ==

== ENCOUNTER → 2023-02-28 | Outpatient (CLI) | payer SELFPAY, MEDICARE ==
[2023-02-28 10:59] LABS: BASO # 0.1 10^3/uL (0.0-0.2); BASO % 0.9 % (0.0-1.0); EOS # 0.5 10^3/uL (0.0-0.5); HEMATOCRIT 38.8 % (42.0-52.0); HEMOGLOBIN 12.9 g/dl (13.5-17.5); LYMPH # 1.8 10^3/uL (1.5-5.0); LYMPH % 28.5 % (24.0-44.0); MEAN CORPUSCULAR HEMOGLOBIN 31.4 pg (27.0-33.0); MEAN CORPUSCULAR HGB CONC 33.2 g/dl (32.0-36.5); MEAN CORPUSCULAR VOLUME 94.4 fl (80.0-96.0); MONO # 0.4 10^3/uL (0.0-0.8); MONO % 6.5 % (2.0-8.0); NEUTROPHILS # 3.5 10^3/uL (1.5-8.5); NEUTROPHILS % 55.8 % (36.0-66.0); PLATELET COUNT, AUTOMATED 232 10^3/uL (150-450); RED BLOOD COUNT 4.11 10^6/uL (4.30-6.10); WHITE BLOOD COUNT 6.3 10^3/uL (4.0-10.0)
[2023-02-28 11:03] LABS: VITAMIN B12 LEVEL 637 PG/ML (211-911)
[2023-02-28 11:04] LABS: ALBUMIN 3.7 G/DL (3.2-5.2); ALKALINE PHOSPHATASE 138 U/L (46-116); ALT/SGPT 17 U/L (7.0-40); AST/SGOT 23 U/L (<34); BILIRUBIN,TOTAL 0.3 MG/DL (0.3-1.2); BLOOD UREA NITROGEN 21 MG/DL (9-23); CALCIUM LEVEL 8.8 MG/DL (8.3-10.6); CARBON DIOXIDE LEVEL 31 MMOL/L (20-31); CHLORIDE LEVEL 100 MMOL/L (98-107); CHOLESTEROL LEVEL 134 MG/DL (<200); CHOLESTEROL RISK RATIO 3.25 (<5); CREATININE FOR GFR 0.97 MG/DL (0.70-1.30); GLOMERULAR FILTRATION RATE > 60.0 (>49); GLUCOSE, FASTING 213 MG/DL (74-106); HDL CHOLESTEROL 41.2 MG/DL (>40); LDL CHOLESTEROL 77.4 MG/DL (<100); NON-HDL-C 92.8 MG/DL; POTASSIUM SERUM 4.8 MMOL/L (3.5-5.1); SODIUM LEVEL 137 MMOL/L (136-145); TOTAL PROTEIN 7.1 G/DL (5.7-8.2); TRIGLYCERIDES LEVEL 77 MG/DL (<150)
[2023-02-28 11:06] LABS: HEMOGLOBIN A1c 10.3 % (4.0-6.0)
== END ==
LOC: M PLALAB 07:06
PROVIDERS: ATTEND Nurse Practitioner Family
DX: E11.8 Type 2 diabetes mellitus with unspecified complications (principal); I10 Essential (primary) hypertension; E78.2 Mixed hyperlipidemia

== ENCOUNTER → 2023-07-01 | Outpatient (CLI) | payer SELFPAY, MEDICARE ==
[2023-07-01 11:31] LABS: IRON (FE) 35 UG/DL (65-175)
[2023-07-01 11:32] LABS: ALBUMIN 3.6 G/DL (3.2-5.2); ALKALINE PHOSPHATASE 137 U/L (46-116); ALT/SGPT 12 U/L (7.0-40); AST/SGOT 12 U/L (<34); BILIRUBIN,TOTAL 0.4 MG/DL (0.3-1.2); BLOOD UREA NITROGEN 19 MG/DL (9-23); CALCIUM LEVEL 9.1 MG/DL (8.3-10.6); CARBON DIOXIDE LEVEL 28 MMOL/L (20-31); CHLORIDE LEVEL 103 MMOL/L (98-107); CREATININE FOR GFR 1.12 MG/DL (0.70-1.30); GLOMERULAR FILTRATION RATE > 60.0 (>49); GLUCOSE, FASTING 145 MG/DL (74-106); POTASSIUM SERUM 4.7 MMOL/L (3.5-5.1); SODIUM LEVEL 140 MMOL/L (136-145); TOTAL PROTEIN 6.9 G/DL (5.7-8.2)
[2023-07-01 11:48] LABS: HEMOGLOBIN A1c 11.3 % (4.0-6.0)
== END ==
LOC: M PLALAB 07:12
PROVIDERS: ATTEND Nurse Practitioner Family
DX: E11.8 Type 2 diabetes mellitus with unspecified complications (principal); D64.9 Anemia, unspecified

== ENCOUNTER → 2025-10-14 | Outpatient (REF) | payer MEDICARE ==
[~2025-10-14] MED LIST changes: -ASPI-161 PO; +ASPI-615 PO; +LIDO70.9 PO; +OCUVTAB PO; +ONDA-282 PO; -ONDA4TAB6 PO
== END ==
LOC: M SFHCPLAZ 08:48
DX: Z53.9 Procedure and treatment not carried out, unspecified reason (principal)

== ENCOUNTER → 2025-10-14 | Outpatient (CLI) | payer MEDICARE ==
[2025-10-14 13:52] LABS: BASO # 0.1 10^3/uL (0.0-0.2); BASO % 1.0 % (0.0-1.0); EOS # 0.4 10^3/uL (0.0-0.5); EOS % 5.6 % (0.0-3.0); LYMPH # 1.2 10^3/uL (1.5-5.0); LYMPH % 20.0 % (24.0-44.0); MONO # 0.4 10^3/uL (0.0-0.8); MONO % 6.3 % (2.0-8.0); NEUTROPHILS # 4.2 10^3/uL (1.5-8.5); NEUTROPHILS % 66.8 % (36.0-66.0); PLATELET COUNT, AUTOMATED 222 10^3/uL (150-450)
[2025-10-14 14:53] LABS: ALT/SGPT 39.0 U/L (7.0-40); AST/SGOT 31.0 U/L (<34); CALCIUM LEVEL 9.5 MG/DL (8.3-10.6); CARBON DIOXIDE LEVEL 28.0 MMOL/L (20-31); CHLORIDE LEVEL 95.0 MMOL/L (98-107); CREATININE FOR GFR 1.0 MG/DL (0.70-1.30); GLOMERULAR FILTRATION RATE 83.0 (>49); POTASSIUM SERUM 5.2 MMOL/L (3.5-5.1); SODIUM LEVEL 132.0 MMOL/L (136-145)
[2025-10-14 17:46] LABS: CHOLESTEROL LEVEL 138.0 MG/DL (<200); CHOLESTEROL RISK RATIO 3.69 (<5); FREE T4 1.27 NG/DL (0.89-1.76); LDL CHOLESTEROL 86.5 MG/DL (<100); NON-HDL-C 100.7 MG/DL; TRIGLYCERIDES LEVEL 71.0 MG/DL (<150)
[2025-10-14 18:28] LABS: ESTIMATED AVERAGE GLUCOSE 324.0 MG/DL (60-110)
== END ==
LOC: M PLALAB 11:23
DX: Z01.818 Encounter for other preprocedural examination (principal); E11.65 Type 2 diabetes mellitus with hyperglycemia; Z13.29 Encounter for screening for other suspected endocrine disorder; Z13.220 Encounter for screening for lipoid disorders

== ENCOUNTER 2025-10-15 10:06 | Emergency (ER) | payer MEDICARE ==
[~2025-10-15] VITALS: Ht 170.2 cm; Wt 73.0 kg
[~2025-10-15 10:06] MED LIST changes: -LIDO70.9 PO; -OCUVTAB PO
[2025-10-15] MEDS ORDERED: OCUVTAB PO (10:52)
[2025-10-15] MEDS ORDERED: LIDO70.9 PO (10:52)
[2025-10-15 11:01] LABS: VENOUS BASE EXCESS 2.2 (-2.0-2.0); VENOUS HCO3 28.7 MMOL/L (23.0-27.0); VENOUS O2 SATURATION 59.8 % (60.0-80.0); VENOUS PARTIAL PRESSURE CO2 52.1 mmHg (38.0-50.0); VENOUS PARTIAL PRESSURE O2 32.4 mmHg (30.0-50.0); VENOUS PH 7.359 UNITS (7.330-7.430); VENOUS STANDARD HCO3 25.5 MMOL/L; VENOUS TOTAL CO2 30.3 MMOL/L (24.0-28.0)
[2025-10-15 11:06] LABS: BASO # 0.1 10^3/uL (0.0-0.2); BASO % 0.8 % (0.0-1.0); EOS # 0.4 10^3/uL (0.0-0.5); EOS % 6.1 % (0.0-3.0); LYMPH # 1.7 10^3/uL (1.5-5.0); LYMPH % 26.1 % (24.0-44.0); MONO # 0.4 10^3/uL (0.0-0.8); MONO % 5.9 % (2.0-8.0); NEUTROPHILS # 3.9 10^3/uL (1.5-8.5); NEUTROPHILS % 60.8 % (36.0-66.0); PLATELET COUNT, AUTOMATED 261 10^3/uL (150-450)
[2025-10-15 11:32] LABS: CALCIUM LEVEL 8.6 MG/DL (8.3-10.6); CARBON DIOXIDE LEVEL 29.0 MMOL/L (20-31); CHLORIDE LEVEL 100.0 MMOL/L (98-107); CREATININE FOR GFR 1.12 MG/DL (0.70-1.30); GLOMERULAR FILTRATION RATE 72.5 (>49); POTASSIUM SERUM 4.0 MMOL/L (3.5-5.1); SODIUM LEVEL 136.0 MMOL/L (136-145)
[2025-10-15 11:56] VITALS: BP 117/69; TEMP 97.4; O2SAT 99
== END 2025-10-15 12:07 | disposition home or self-care (01) ==
LOC: M ED 10:06
DX: E11.9 Type 2 diabetes mellitus without complications (principal); E78.5 Hyperlipidemia, unspecified; Z88.6 Allergy status to analgesic agent; Z90.49 Acquired absence of other specified parts of digestive tract; Z79.4 Long term (current) use of insulin

== ENCOUNTER → 2025-10-22 | Outpatient (CLI) | payer MEDICARE ==
[~2025-10-22] MED LIST changes: +LIDO70.9 PO; +OCUVTAB PO
[2025-10-22 13:58] LABS: BASO # 0.1 10^3/uL (0.0-0.2); BASO % 0.8 % (0.0-1.0); EOS # 0.3 10^3/uL (0.0-0.5); EOS % 4.7 % (0.0-3.0); LYMPH # 0.6 10^3/uL (1.5-5.0); LYMPH % 9.4 % (24.0-44.0); MONO # 0.4 10^3/uL (0.0-0.8); MONO % 6.6 % (2.0-8.0); NEUTROPHILS # 5.0 10^3/uL (1.5-8.5); NEUTROPHILS % 78.0 % (36.0-66.0); PLATELET COUNT, AUTOMATED 235 10^3/uL (150-450)
[2025-10-22 14:26] LABS: CALCIUM LEVEL 8.5 MG/DL (8.3-10.6); CARBON DIOXIDE LEVEL 30.0 MMOL/L (20-31); CHLORIDE LEVEL 104.0 MMOL/L (98-107); CREATININE FOR GFR 1.09 MG/DL (0.70-1.30); GLOMERULAR FILTRATION RATE 74.9 (>49); POTASSIUM SERUM 4.3 MMOL/L (3.5-5.1); SODIUM LEVEL 140.0 MMOL/L (136-145)
== END ==
LOC: M PLALAB 11:20
PROVIDERS: ATTEND Student in an Organized Health Care Education/Training Program
DX: Z01.818 Encounter for other preprocedural examination (principal)